=== PATIENT | female | born 1955 | race Caucasian/White ===

== ENCOUNTER → 2018-10-22 11:05 | Outpatient (CLI) | payer MEDICARE, OTHER, SELFPAY ==
[2018-10-22 13:22] LABS: Basophils # 0.1 K/mm3 (0-0.2); Basophils % 1.1 % (0.1-2.0); Eosinophils # 0.3 K/mm3 (0.0-0.4); Eosinophils % 5.6 % (0.1-12.0); Hematocrit 38.4 % (37.0-47.0); Hemoglobin 12.6 g/dL (12.2-16.2); Lymphocytes # 1.1 K/mm3 (0.7-4.5); Lymphocytes % 23.6 % (10-50); Mean Corpuscular HGB Conc 32.8 g/dL (31.8-35.4); Mean Corpuscular Hemoglobin 29.8 pg (27.0-31.2); Mean Corpuscular Volume 90.9 fl (81-99); Mean Platelet Volume 8.7 fl (7.4-10.4); Monocytes # 0.3 K/mm3 (0.1-1.0); Monocytes % 7.1 % (1.7-9.3); Neutrophils # 2.9 K/mm3 (1.8-7.8); Neutrophils % 62.7 % (37.0-80.0); Platelet Count 280 K/mm3 (142-424); Red Blood Count 4.22 M/mm3 (4.20-5.40); Red Cell Distribution Width 12.9 % (11.5-17.5); White Blood Count 4.6 K/mm3 (4.8-10.8)
[2018-10-22 13:50] LABS: Alanine Aminotransferase 75 U/L (12-78); Albumin Level 3.5 gm/dL (3.4-5.0); Alkaline Phosphatase 53 U/L (46-116); Anion Gap 17.6 mEq/L (5-15); Aspartate Amino Transferase 69 U/L (15-37); Bilirubin,Total 0.7 mg/dL (0.2-1.0); Blood Urea Nitrogen 35 mg/dL (7-18); Calcium 9.3 mg/dL (8.5-10.1); Carbon Dioxide 24 mmol/L (21.0-32.0); Chloride 101 mmol/L (98-107); Chol/HDL Ratio 2.8 (1-3.5); Cholesterol 183 mg/dL (140-200); Creatinine,Serum 1.95 mg/dL (0.55-1.02); Estimated Glomerular Filt Rate 26 ml/min (>60); GFR (African American) 31 ML/MIN (>60); Globulin 3.6 gm/dl (1.3-3.2); Glucose 101 mg/dL (74-106); HDL Cholesterol 66 mg/dL (29-89); LDL Cholesterol 89 mg/dL (0-130); Potassium 4.6 mmoL/L (3.5-5.1); Sodium 138 mmol/L (136-145); Total Protein,Serum 7.1 gm/dL (6.4-8.2); Triglycerides 142 mg/dL (30-200); VLDL Cholesterol 28 mg/dL (0-40)
== END ==
PROVIDERS: PCP Nurse Practitioner Family; Visit Provider Nurse Practitioner Family
DX: Z00.00 Encounter for general adult medical examination without abnormal findings (principal); I10 Essential (primary) hypertension; D72.819 Decreased white blood cell count, unspecified; R74.8 Abnormal levels of other serum enzymes; E78.5 Hyperlipidemia, unspecified
CPT/HCPCS: 36415; 80053; 80061; 85025

== ENCOUNTER → 2018-11-10 10:55 | Outpatient (CLI) | payer MEDICARE, OTHER, SELFPAY ==
[2018-11-10 10:58] LABS: Microscopic, Urine URINE MICROSCOPIC (MICROSCOPIC)
[2018-11-10 13:57] LABS: Appearance,Urine SL CLOUDY (Clear); Bilirubin,Urine Negative (Negative); Blood, Urine Negative (Negative); Color,Urine YELLOW (Yellow); Glucose,Urine (UA) Negative (Negative); Ketones,Urine Negative (Negative); Leukocyte Esterase,Urine 2+ (Negative); Nitrate,Urine POSITIVE (Negative); Protein,Urine Negative (Negative); Specific Gravity, Urine <= 1.005 (1.005-1.030); Urobilinogen,Urine 0.2 EU/dl (0.2)
[2018-11-10 14:20] LABS: Bacteria,Urine 1+ /lpf
[2018-11-10 15:12] LABS: Anion Gap 17.2 mEq/L (5-15); Blood Urea Nitrogen 20 mg/dL (7-18); Calcium 8.9 mg/dL (8.5-10.1); Carbon Dioxide 25 mmol/L (21.0-32.0); Chloride 100 mmol/L (98-107); Creatinine,Serum 1.34 mg/dL (0.55-1.02); Estimated Glomerular Filt Rate 40 ml/min (>60); GFR (African American) 48 ML/MIN (>60); Glucose 108 mg/dL (74-106); Potassium 4.2 mmoL/L (3.5-5.1); Sodium 138 mmol/L (136-145)
== END ==
PROVIDERS: PCP Nurse Practitioner Family; Visit Provider Nurse Practitioner Family
DX: R79.89 Other specified abnormal findings of blood chemistry (principal); R82.90 Unspecified abnormal findings in urine
CPT/HCPCS: 36415; 80048; 81001; 87086; 87088; 87186

== ENCOUNTER 2018-12-23 20:00 | Observation (INO) ==
--- NOTE | 2018-12-23 20:21 | Emergency Department Note ---
ED Disposition Clinical Impression: Obesity (BMI 30.0-34.9), Renal insufficiency Humerus fracture Qualifiers: Encounter type: initial encounter Humerus Location: shaft Fracture type: closed Fracture morphology: greenstick Laterality: right Qualified Code(s): S42.311A - Greenstick fracture of shaft of humerus, right arm, initial encounter for closed fracture Fall Qualifiers: Encounter type: initial encounter Qualified Code(s): W19.XXXA - Unspecified fall, initial encounter Anemia Qualifiers: Anemia type: unspecified type Qualified Code(s): D64.9 - Anemia, unspecified Disposition: Admitted as Observation Condition on Discharge: Fair Referrals: Ron Shen MD [Primary Care Provider] - - Critical Care Critical Care Time: No Attestation: On , the high probability of a clinically significant, sudden or life threatening deterioration of the following system(s) required my full and direct attention, intervention and personal management. The time I documented below is in addition to time spent performing reported procedures but includes the following listed in this critical care notation. Medical Decision Making - Medical Records Medical records reviewed: Yes: I reviewed the patient's medical records. - Keron Inquiry Pt receiving controlled substance: No Vital Signs: 12/23/18 20:00 Temperature 98.1 F Temperature Source Oral Pulse Rate [Right Radial] 79 Respiratory Rate 18 Blood Pressure [Right Arm] 136/59 L Blood Pressure Mean [Right Arm] 84 02 Sat by Pulse Oximetry 99 - Lab Data Lab results reviewed: Yes: I reviewed the patient's lab results. Lab Results 12/23/18 20:20: WBC 5.9, RBC 3.40 L, Hgb 10.4 L, Hct 31.9 L, MCV 94.0, MCH 30.7, MCHC 32.6, RDW 13.9, Plt Count 248, MPV 9.9, Neut % (Auto) 68.2, Lymph % (Auto) 19.5, Nelson % (Auto) 8.2, Eos % (Auto) 3.5, Baso % (Auto) 0.7, Neut # (Auto) 4.0, Lymph # (Auto) 1.2, Nelson # (Auto) 0.5, Eos # (Auto) 0.2, Baso # (Auto) 0.0 12/23/18 20:20: Sodium 133 L, Potassium 4.4, Chloride 98, Carbon Dioxide 25, Anion Gap 14.4, BUN 31 H, Creatinine 1.47 H, Estimated Creat Clear 41, Estimated GFR 36 L, Est GFR ( Amer) 43 L, Glucose 101, Calcium 9.2, Total Bilirubin 1.1 H, AST 83 H, ALT 55, Alkaline Phosphatase 83, Total Protein 7.1, Albumin 3.0 L, Globulin 4.1 H, Albumin/Globulin Ratio 0.7 L Result diagrams: 12/23/18 20:20 12/23/18 20:20 Orders (Tests/Meds): ED MEDICATIONS Generic Name Dose Route Start Last Admin Trade Name Freq PRN Reason Stop Dose Admin Sodium Chloride 1,000 mls @ 999 mls/hr 12/23/18 20:30 12/23/18 20:37 Sod Chlor 0.9% 1000ml Bag IV 12/23/18 21:30 999 mls/hr .Q1H1M CONSUELO Administration Sodium Chloride 10 ml 12/23/18 20:09 Saline Flush 10ml Syringe IV 01/22/19 20:08 NEEDED PRN Maintain IV Site Discontinued Medications Generic Name Dose Route Start Last Admin Trade Name Freq PRN Reason Stop Dose Admin Morphine Sulfate 4 mg 12/23/18 20:09 12/23/18 20:37 Morphine 4mg/Ml Syringe IV 12/23/18 20:10 4 mg ONCE ONE Administration Ondansetron HCl 4 mg 12/23/18 20:09 12/23/18 20:37 Zofran 4mg/2ml Vial IV 12/23/18 20:10 4 mg ONCE ONE Administration ORDERS Category Date Time Status CT angio humerus RT Stat Cat Scan 12/23/18 20:[address] cervical spine wo con Stat Cat Scan 12/23/18 20:[address] facial bones wo con Stat Cat Scan 12/23/18 20:[address] head/brain wo con Stat Cat Scan 12/23/18 20:09 Taken XR chest AP Stat Exams 12/23/18 20:09 Taken XR forearm RT 2V Stat Exams 12/23/18 20:09 Taken XR hand RT min 3V Stat Exams 12/23/18 20:09 Taken XR humerus RT Stat Exams 12/23/18 20:14 Taken XR pelvis 1-2V Stat Exams 12/23/18 20:09 Taken CPK [Creatine Kinase] Stat Lab 12/23/18 20:20 Received UA [Urinalysis and Microscopic] Stat Lab 12/23/18 21:37 Ordered - Radiology Data #1 Image(s): Chest, Shoulder, Humerus, Forearm, Pelvis Image Reviewed: Yes I reviewed the patient's radiology image Preliminary Findings: Abnormal (fx seen) - CT Data CT Scan: Head, C-Spine, Sinus Time Received: 21:[address] Reviewed: Yes: I have viewed the radiologist's interpretation Preliminary Findings: No Fracture Seen - Physician Consults Physician Consulted: antonio Reason -: Admission Additional Consult: quincy Reason -: Pt condition Fall HPI - General Chief Complaint: Fall Stated Complaint: fall Time Seen by Provider: 12/23/18 20:05 Mode of Arrival: EMS Source of Information: Patient, EMS, Medical Record Limitations: Physical Limitations Description of Symptoms (Recalled from ER Triage Doc. by RN): pt states she fell on thursday after tripping on a welcome mat. pt states that she fell into the edge of a table and then hit a barstool. - History of Present Illness HPI Narrative: trip fall on thursday with rt upper ext and facial injury - no loc and no chest pain Onset (ago): day(s) Fall from: standing Fall witnessed: no Place fall occurred: home Loss of consciousness: none Prolonged down time: no Symptoms prior to fall: none Context: tripped/slipped Location of injury: head, face Location of injury - extremities: Right: arm Severity: moderate Associated symptoms (after fall): denies - Related Data Home Medications Medication Instructions Recorded Confirmed ALPRAZolam [Xanax 0.5mg tab] 0.5 mg PO TID 12/23/18 12/23/18 Amlodipine Besylate [Norvasc 2.5mg 2.5 mg PO DAILY 12/23/18 12/23/18 Tab] Atorvastatin Calcium [Lipitor 40mg 40 mg PO DAILY 12/23/18 12/23/18 Tablet] Carvedilol [Carvedilol 12.5mg Tab] 12.5 mg PO BID 12/23/18 12/23/18 Allergies Allergy/AdvReac Type Severity Reaction Status Date / Time No Known Allergies Allergy Unknown Uncoded 10/13/17 14:52 [facility] History - Hepatitis A Screen Drug use history?: No High risk sexual behaviors?: No History of sexually transmitted infection?: No Currently employed?: No Childcare worker?: No Do you have indoor plumbing?: Yes Do you have electricity?: Yes Attestation statement:: This patient has been screened for Hepatitis A risk factors. I have reviewed the patient's past medical history: No Medical History: Denies:: Cancer, Diabetes Mellitus Type 1, Diabetes Mellitus Type 2, MRSA Amputation: No - Social History Smoking Status: Never smoker Alcohol Intake: current Alcohol Intake Frequency:: a few times a month Occupational Status: retired Housing: house - Psychiatric History Expresses thoughts of harming self/others: None Suicide Plan Description: No Plan ROS Obtained: Yes All systems reviewed & no additional complaints - Constitutional Constitutional: Denies fever(s) - Eyes Eyes: Denies change in vision - ENT Ears, Nose, Mouth, and Throat: Denies sore throat - Cardiovascular Cardiovascular: Denies chest pain at rest - Respiratory Respiratory: No cough - Gastrointestinal Gastrointestingal: Denies: diarrhea, vomiting - Genitourinary Female Genitourinary: Denies hematuria - Musculoskeletal Musculoskeletal: Reports as per HPI, Reports joint pain, Reports joint swelling, Reports limited range of motion, Reports neck pain - Integumentary/Breasts Skin/Breast: Denies rash - Neurologic Neurologic: Denies seizure-like activity Physical Exam - General General appearance: in no apparent distress, obese - Head Head exam: normocephalic - Eye Eye exam: Present: PERRL, EOMI - ENT ENT exam: Present: mucous membranes dry, other (positive facial bruising ) - Neck Neck exam: Present: trachea midline. Absent: full ROM - Chest Chest inspection: Present: normal inspection - Respiratory Respiratory exam: Present: other (dec bs bilat ) - Cardiovascular Cardiovascular exam: Present: regular rate, systolic murmur - Abdominal Exam Abdominal exam: Present: soft - Extremities Exam Extremities exam: Absent: calf tenderness - Expanded Upper Extremity Exam Right Arm exam: Present: tenderness, swelling, ecchymosis, deformity Neuromotor exam: Normal: wrist extension Neurosensory exam: Normal: radial nerve - Expanded Lower Extremity Exam Right Hip/Pelvis exam: Present: pelvis stable - Neurological Exam Neurological exam: Present: alert, oriented X3, CN II-XII intact - Psychiatric Psychiatric exam: Present: normal affect - Skin Skin exam: Absent: rash
[2018-12-23 20:26] LABS: Basophils % 0.7 % (0.1-2.0); Eosinophils # 0.2 K/mm3 (0.0-0.4); Eosinophils % 3.5 % (0.1-12.0); Hematocrit 31.9 % (37.0-47.0); Hemoglobin 10.4 g/dL (12.2-16.2); Lymphocytes # 1.2 K/mm3 (0.7-4.5); Lymphocytes % 19.5 % (10-50); Mean Corpuscular HGB Conc 32.6 g/dL (31.8-35.4); Mean Corpuscular Hemoglobin 30.7 pg (27.0-31.2); Mean Platelet Volume 9.9 fl (7.4-10.4); Monocytes # 0.5 K/mm3 (0.1-1.0); Monocytes % 8.2 % (1.7-9.3); Neutrophils % 68.2 % (37.0-80.0); Platelet Count 248 K/mm3 (142-424); Red Cell Distribution Width 13.9 % (11.5-17.5); White Blood Count 5.9 K/mm3 (4.8-10.8)
[2018-12-23 20:40] LABS: Albumin/Globulin Ratio 0.7 (1.1-1.8); Anion Gap 14.4 mEq/L (5-15); Bilirubin,Total 1.1 mg/dL (0.2-1.0); Calcium 9.2 mg/dL (8.5-10.1); Globulin 4.1 gm/dl (1.3-3.2); Potassium 4.4 mmoL/L (3.5-5.1); Total Protein,Serum 7.1 gm/dL (6.4-8.2)
[2018-12-24 04:54] LABS: Calcium 8.9 mg/dL (8.5-10.1)
[2018-12-24 05:00] LABS: Basophils % 0.7 % (0.1-2.0); Eosinophils # 0.3 K/mm3 (0.0-0.4); Eosinophils % 4.5 % (0.1-12.0); Hematocrit 29.4 % (37.0-47.0); Hemoglobin 9.7 g/dL (12.2-16.2); Lymphocytes # 1.4 K/mm3 (0.7-4.5); Lymphocytes % 24.8 % (10-50); Mean Corpuscular HGB Conc 32.9 g/dL (31.8-35.4); Mean Corpuscular Hemoglobin 31.2 pg (27.0-31.2); Mean Corpuscular Volume 94.8 fl (81-99); Mean Platelet Volume 9.2 fl (7.4-10.4); Monocytes # 0.4 K/mm3 (0.1-1.0); Monocytes % 7.7 % (1.7-9.3); Neutrophils # 3.5 K/mm3 (1.8-7.8); Neutrophils % 62.3 % (37.0-80.0); Platelet Count 218 K/mm3 (142-424); Red Blood Count 3.11 M/mm3 (4.20-5.40); Red Cell Distribution Width 13.8 % (11.5-17.5); White Blood Count 5.7 K/mm3 (4.8-10.8)
--- NOTE | 2018-12-24 07:51 | Pharmacy Consult Notes ---
[facility] Pharmacy VTE Monitoring - Patient Demographics Admission date: 12/23/18 Report Date: 12/24/18 Time: 07:51 Allergies/Adverse Reactions: Patient Allergies No Known Allergies Allergy (Unknown, Uncoded 10/13/17 14:52) Height: 1.47 m Weight: 73.227 kg Patient Problems: Current Active Problems Humerus fracture (Acute) Obesity (BMI 30.0-34.9) (Acute) Fall (Acute) Renal insufficiency (Acute) Anemia (Acute) - VTE Risk Labs: VTE Related Lab Results Hgb 9.7 g/dL (12.2-16.2) L 12/24/18 04:30 Hct 29.4 % (37.0-47.0) L 12/24/18 04:30 Plt Count 218 K/mm3 (142-424) 12/24/18 04:30 BUN 27 mg/dL (7-18) H 12/24/18 04:30 Creatinine 1.23 mg/dL (0.55-1.02) H 12/24/18 04:30 Estimated Creat Clear 53 mL/min (50-200) 12/24/18 04:30 Was VTE Risk Assessment Performed: Yes VTE Score: 3 VTE Risk Level: Low Risk Clinical Trial Participant: No - Prophylaxis VTE Prophylaxis Ordered?: Yes Types of VTE Prophylaxis: TEDS Knee High Location of Applied Device: Refused
--- NOTE | 2018-12-24 08:19 | History & Physical Report ---
*Admission Date: 12/23/18 *Chief complaint: humerus fracture *History of present illness: Ms. Melo is a 63-year-old female who fell a week ago and has had arm pain since. Presented to the ER where she was noted to have displaced, oblique, midshaft humeral fracture. Was admitted as she requires surgical fixation. Additionally patient has renal insufficiency, per review of labs this appears to be chronic and she is roughly at her baseline creatinine. Lastly noted to have elevated CK however given the soft tissue trauma with her arm fracture, suspect it is related to this versus bia rhabdomyolysis. Orthopedic surgery consulted from the ER, plan for surgery today [facility] History Medical History: Reports:: Hyperlipidemia, Hypertension Denies:: Cancer, Diabetes Mellitus Type 1, Diabetes Mellitus Type 2, MRSA *Have you ever received a pneumonia vaccine?: Yes *Have you received a flu vaccine this season?: Yes Other Surgeries: Yes: Appendectomy, Cholecystectomy, Diagnostic Lap, Other (Right Ankle Surgery) Amputation: No - *Social History Educational Level: Completed College Smoking Status: Never smoker Alcohol Intake: never Alcohol Intake Frequency:: a few times a month *Occupational Status:: retired Housing: house Household Members: none *Travel in the last 8 weeks: None - Psychiatric History Expresses thoughts of harming self/others: None Suicide Plan Description: No Plan Family Hx:: Diabetes, Heart Attack, Hyperlipidemia, Hypertension Review of Systems - *Neurologic Denies seizure-like activity Meds Home Medications Medication Instructions Recorded Confirmed Type ALPRAZolam [Xanax 0.5mg tab] 0.5 mg PO TID 12/23/18 12/23/18 History Amlodipine Besylate [Norvasc 2.5mg 2.5 mg PO DAILY 12/23/18 12/23/18 History Tab] Atorvastatin Calcium [Atorvastatin 20 mg PO HS 12/24/18 12/24/18 History 20mg Tab] Carvedilol [Carvedilol 25mg Tab] 25 mg PO BID 12/24/18 12/24/18 History Losartan Potassium [Cozaar] 100 mg PO DAILY 12/24/18 12/24/18 History Allergies Allergy/AdvReac Type Severity Reaction Status Date / Time No Known Allergies Allergy Unknown Uncoded 10/13/17 14:52 Exam Vital signs and Labs for Last 24 Hours: Temp Pulse Resp BP Pulse Ox 99.0 F 77 15 115/67 96 03/01/19 04:00 12/24/18 04:00 12/24/18 04:00 12/24/18 04:00 12/24/18 04:00 Laboratory Results - last 24 hr 12/23/18 20:20: WBC 5.9, RBC 3.40 L, Hgb 10.4 L, Hct 31.9 L, MCV 94.0, MCH 30.7, MCHC 32.6, RDW 13.9, Plt Count 248, MPV 9.9, Neut % (Auto) 68.2, Lymph % (Auto) 19.5, [place] % (Auto) 8.2, Eos % (Auto) 3.5, Baso % (Auto) 0.7, Neut # (Auto) 4. 0, Lymph # (Auto) 1.2, [place] # (Auto) 0.5, Eos # (Auto) 0.2, Baso # (Auto) 0.0 12/23/18 20:20: Sodium 133 L, Potassium 4.4, Chloride 98, Carbon Dioxide 25, Anion Gap 14.4, BUN 31 H, Creatinine 1.47 H, Estimated Creat Clear 41, Estimated GFR 36 L, Est GFR ( Amer) 43 L, Glucose 101, Calcium 9.2, Total Bilirubin 1.1 H, AST 83 H, ALT 55, Alkaline Phosphatase 83, Total Protein 7.1, Albumin 3.0 L, Globulin 4.1 H, Albumin/Globulin Ratio 0.7 L 12/23/18 20:20: Total Creatine Kinase 1372 H* 12/24/18 00:50: Troponin I < 0.02 12/24/18 04:30: Troponin I < 0.02 12/24/18 04:30: WBC 5.7, RBC 3.11 L, Hgb 9.7 L, Hct 29.4 L, MCV 94.8, MCH 31.2, MCHC 32.9, RDW 13.8, Plt Count 218, MPV 9.2, Neut % (Auto) 62.3, Lymph % (Auto) 24.8, [place] % (Auto) 7.7, Eos % (Auto) 4.5, Baso % (Auto) 0.7, Neut # (Auto) 3.5, Lymph # (Auto) 1.4, [place] # (Auto) 0.4, Eos # (Auto) 0.3, Baso # (Auto) 0.0 12/24/18 04:30: Sodium 136, Potassium 4.0, Chloride 101, Carbon Dioxide 24, Anion Gap 15.0, BUN 27 H, Creatinine 1.23 H, Estimated Creat Clear 53, Estimated GFR 44 L, Est GFR ( Amer) 53 L D, Glucose 83, Calcium 8.9 I & O for Last 24 hours: Intake & Output 12/21/18 12/22/18 12/23/18 12/24/18 23:59 23:59 23:59 23:59 Intake Total 1000 / 1000 559 / 559 Output Total 300 / 300 Balance 1000 / 999 259 / 259 Weight 73.227 kg 73.227 kg
--- NOTE | 2018-12-24 11:17 | Consult Report ---
*Admission Date: 12/23/18 *Chief complaint: Injury right arm *History of present illness: Ms. Melo is a 63-year-old [id number] female with remote history of alcohol abuse, current history of obesity, hypertension, hyperlipidemia, chronic kidney disease, and anxiety necessitating daily Xanax. She presented to the ER due to persistent pain in her right arm. She reports having fallen a week ago and has had arm pain since. She says she fell down at home after tripping over the rug going into her house. She presented to the ER last night where she was noted to have a closed, displaced, spiral midshaft fracture right humerus. Patient was admitted for observation due to concern for mild rhabdomyolysis, kidney insufficiency, and pain control. Orthopedic surgery was consulted for managing the humeral fracture. Patient denies any head trauma, confusion, neurologic deficits, chest pain, shortness of breath. No history of any distal tingling or numbness. She lives by herself and friends and neighbors have been helping her since she fell. Review of Systems - Review of Systems Review of systems:: pertinent systems reviewed and negative unless documented below - Constitutional Denies anorexia, Denies fever(s) - Eyes Denies blind spots, Denies change in vision - ENT Denies abnormal hearing, Denies difficulty swallowing - *Cardiovascular Denies chest pain, Denies shortness of breath - *Respiratory Denies cough, Denies shortness of breath - *Gastrointestinal Denies abdominal pain, Denies change in bowel habits - *Musculoskeletal Reports joint pain, Reports deformity - *Neurologic Denies abnormal movements, Denies abnormal speech, Denies seizure-like activity [facility] History I have reviewed the patient's past medical history: Yes Medical History: Reports:: Hyperlipidemia, Hypertension Denies:: Cancer, Diabetes Mellitus Type 1, Diabetes Mellitus Type 2, MRSA *Have you ever received a pneumonia vaccine?: Yes *Have you received a flu vaccine this season?: Yes Other Surgeries: Yes: Appendectomy, Cholecystectomy, Diagnostic Lap, Other (Right Ankle Surgery) Amputation: No - *Social History Educational Level: Completed College Smoking Status: Never smoker Alcohol Intake: never Alcohol Intake Frequency:: a few times a month *Occupational Status:: retired Housing: house Household Members: none *Travel in the last 8 weeks: None - Psychiatric History Expresses thoughts of harming self/others: None Suicide Plan Description: No Plan Family Hx:: Diabetes, Heart Attack, Hyperlipidemia, Hypertension Meds Home Medications Medication Instructions Recorded Confirmed Type ALPRAZolam [Xanax 0.5mg tab] 0.5 mg PO TID 12/23/18 12/23/18 History Amlodipine Besylate [Norvasc 2.5mg 2.5 mg PO DAILY 12/23/18 12/23/18 History Tab] Atorvastatin Calcium [Atorvastatin 20 mg PO HS 12/24/18 12/24/18 History 20mg Tab] Calcium Carbonate/Vitamin D3 1 each PO DAILY 30 Days #30 tablet 12/24/18 Rx [Calcium 1,000 + D3 Caplet] Carvedilol [Carvedilol 25mg Tab] 25 mg PO BID 12/24/18 12/24/18 History Losartan Potassium [Cozaar] 100 mg PO DAILY 12/24/18 12/24/18 History Allergies Allergy/AdvReac Type Severity Reaction Status Date / Time No Known Allergies Allergy Unknown Uncoded 10/13/17 14:52 Exam Vital signs and Labs for Last 24 Hours: Temp Pulse Resp BP Pulse Ox 97.8 F 82 18 125/81 99 12/24/18 08:00 12/24/18 08:00 12/24/18 08:00 12/24/18 08:00 12/24/18 08:00 Laboratory Results - last 24 hr 12/23/18 20:20: WBC 5.9, RBC 3.40 L, Hgb 10.4 L, Hct 31.9 L, MCV 94.0, MCH 30.7, MCHC 32.6, RDW 13.9, Plt Count 248, MPV 9.9, Neut % (Auto) 68.2, Lymph % (Auto) 19.5, Stafford % (Auto) 8.2, Eos % (Auto) 3.5, Baso % (Auto) 0.7, Neut # (Auto) 4.0, Lymph # (Auto) 1.2, Stafford # (Auto) 0.5, Eos # (Auto) 0.2, Baso # (Auto) 0.0 12/23/18 20:20: Sodium 133 L, Potassium 4.4, Chloride 98, Carbon Dioxide 25, Anion Gap 14.4, BUN 31 H, Creatinine 1.47 H, Estimated Creat Clear 41, Estimated GFR 36 L, Est GFR ( Amer) 43 L, Glucose 101, Calcium 9.2, Total Bilirubin 1.1 H, AST 83 H, ALT 55, Alkaline Phosphatase 83, Total Protein 7.1, Albumin 3.0 L, Globulin 4.1 H, Albumin/Globulin Ratio 0.7 L 12/23/18 20:20: Total Creatine Kinase 1372 H* 12/24/18 00:50: Troponin I < 0.02 12/24/18 04:30: Troponin I < 0.02 12/24/18 04:30: WBC 5.7, RBC 3.11 L, Hgb 9.7 L, Hct 29.4 L, MCV 94.8, MCH 31.2, MCHC 32.9, RDW 13.8, Plt Count 218, MPV 9.2, Neut % (Auto) 62.3, Lymph % (Auto) 24.8, [place] % (Auto) 7.7, Eos % (Auto) 4.5, Baso % (Auto) 0.7, Neut # (Auto) 3.5, Lymph # (Auto) 1.4, [place] # (Auto) 0.4, Eos # (Auto) 0.3, Baso # (Auto) 0.0 12/24/18 04:30: Sodium 136, Potassium 4.0, Chloride 101, Carbon Dioxide 24, Anion Gap 15.0, BUN 27 H, Creatinine 1.23 H, Estimated Creat Clear 53, Estimated GFR 44 L, Est GFR ( Amer) 53 L D, Glucose 83, Calcium 8.9 I & O for Last 24 hours: Intake & Output 12/21/18 12/22/18 12/23/18 12/24/18 11:59 11:59 11:59 11:59 Intake Total 1559 / 1559 Output Total 300 / 300 Balance 1259 / 1259 Weight 161 lb 7 oz - Constitutional no acute distress, obese, cooperative - *Routine HEENT Exam Head: Present: normocephalic Eye: Present: EOMI ENT: Present: mucous membranes moist Comments: Fading ecchymosis around the right eye; no fractures noted on imaging - *Routine Neck Exam Present: supple, full ROM, trachea midline. Absent: lymphadenopathy - *Routine Respiratory Exam Present: CTA bilaterally. Absent: respiratory distress - *Routine Cardiovascular Exam Present: RRR, Normal S1, Normal S2 - *Routine Abdominal Exam Present: soft, normoactive bowel sounds. Absent: organomegaly - *Routine Extremities Exam Comments: Right upper extremity: skin is in good condition, no ulcerations or lacerations evident; there is extensive swelling and ecchymosis over the right shoulder, upper arm and around the elbow. Palpation/Inspection: Diffuse swelling and tenderness over the upper arm. Nontender over the shoulder and elbow joints. Skin is not tented or threatened. Range of motion: Movements of the right shoulder and right elbow not tested because of known fracture and pain. Vascular: Radial and ulnar pulses intact; cap refill almost instantaneous. Neurovascular status: grossly intact; axillary nerve is intact and the deltoid is actively marian. Radial nerve is intact and she has good range of active extension of wrist and fingers. Sensation is intact to light touch throughout. Normal sensation and motor power over R/M/U nerve distribution. Miscellaneous: Examination of the wrist and hand are unremarkable. Diagnostic Imaging: X-rays performed at [facility] reviewed along with the radiologist's report- the x-rays show a displaced, spiral fracture midshaft right humerus. Results - Labs Result Diagrams: 12/24/18 04:30 12/24/18 04:30 Labs: Abnormal lab results 12/23/18 12/23/18 12/23/18 Range/Units 20:20 20:20 20:20 RBC 3.40 L (4.20-5.40) M/mm3 Hgb 10.4 L (12.2-16.2) g/dL Hct 31.9 L (37.0-47.0) % Sodium 133 L (136-145) mmol/L BUN 31 H (7-18) mg/dL Creatinine 1.47 H (0.55-1.02) mg/dL Estimated GFR 36 L (>60) ml/min Est GFR ( Amer) 43 L (>60) ML/MIN Total Bilirubin 1.1 H (0.2-1.0) mg/dL AST 83 H (15-37) U/L Total Creatine Kinase 1372 H* (26-192) U/L Albumin 3.0 L (3.4-5.0) gm/dL Globulin 4.1 H (1.3-3.2) gm/dl Albumin/Globulin Ratio 0.7 L (1.1-1.8) 12/24/18 12/24/18 Range/Units 04:30 04:30 RBC 3.11 L (4.20-5.40) M/mm3 Hgb 9.7 L (12.2-16.2) g/dL Hct 29.4 L (37.0-47.0) % Sodium (136-145) mmol/L BUN 27 H (7-18) mg/dL Creatinine 1.23 H (0.55-1.02) mg/dL Estimated GFR 44 L (>60) ml/min Est GFR ( Amer) 53 L D (>60) ML/MIN Total Bilirubin (0.2-1.0) mg/dL AST (15-37) U/L Total Creatine Kinase (26-192) U/L Albumin (3.4-5.0) gm/dL Globulin (1.3-3.2) gm/dl Albumin/Globulin Ratio (1.1-1.8) H & H 12/23/18 12/24/18 Range/Units 20:20 04:30 Hgb 10.4 L 9.7 L (12.2-16.2) g/dL Hct 31.9 L 29.4 L (37.0-47.0) % All other labs normal. Assessment and Plan (1) Fall Current visit: Yes Status: Acute Qualifiers: Encounter type: initial encounter Qualified Code(s): W19.XXXA - Unspecified fall, initial encounter Category: Medical Code(s): W19.XXXA - Unspecified fall, initial encounter (2) Humerus fracture Current visit: Yes Status: Acute Qualifiers: Encounter type: initial encounter Humerus Location: shaft Fracture type: closed Fracture morphology: spiral Fracture alignment: displaced Laterality: right Qualified Code(s): S42.341A - Displaced spiral fracture of shaft of humerus, right arm, initial encounter for closed fracture Category: Medical Code(s): S42.309A - Unspecified fracture of shaft of humerus, unspecified arm, initial encounter for closed fracture - Assessment and plan all Dx Assessment and Plan for all problems:: I have reviewed the clinical and x-ray findings with the patient. I have discussed the diagnosis, natural history and management options in detail in cluding both nonsurgical and surgical. Given the fracture pattern/alignment, medical comorbidities, I have recommended conservative management with a hanging cast application. Patient wished to proceed with this. A well-padded and well fitting hanging cast was applied to the right arm. Appropriate cast care instructions were given. I have advised rest, icing, activity modification, intermittent shoulder, wrist and finger movements, simple pain medication as needed and to sleep in a reclined position. I have discussed about likely need for surgical intervention if the alignment is not acceptable during follow-up or if she develops any complications. All her questions were answered and she verbalized a good understanding. From an orthopedic standpoint, patient can be discharged home as appropriate. I would like to see her for follow-up in my office in one week with check x-ray right humerus.
--- NOTE | 2018-12-24 12:20 | H&P/Discharge Summary ---
General - General Admission date:: 12/23/18 Discharge date: 12/24/18 *Admission Date: 12/23/18 *Chief complaint: right humeral fracture *History of present illness: Ms. Melo is a 63-year-old female with remote history of alcohol abuse, current history of obesity, hypertension, hyperlipidemia, chronic kidney disease, and anxiety necessitating daily Xanax. She presented to the ER due to persistent pain in her right arm. She reports having fallen a week ago and has had arm pain since. Presented to the ER where she was noted to have displaced, oblique, midshaft humeral fracture. Was admitted for assessment of surgical fixation versus hanging cast as well as due to concern for mild rhabdomyolysis, kidney insufficiency, and pain control. Orthopedic surgery consulted from the ER, plan for assessment this morning for surgery versus casting. Denies head trauma, confusion, neurologic deficits, chest pain, shortness of breath. On further questioning states she tripped over the rug going into her house. D enies any trauma sustained from anybody else. [facility] History I have reviewed the patient's past medical history: Yes Medical History: Reports:: Hyperlipidemia, Hypertension Denies:: Cancer, Diabetes Mellitus Type 1, Diabetes Mellitus Type 2, MRSA *Have you ever received a pneumonia vaccine?: Yes *Have you received a flu vaccine this season?: Yes Other Surgeries: Yes: Appendectomy, Cholecystectomy, Diagnostic Lap, Other (Right Ankle Surgery) Amputation: No - *Social History Educational Level: Completed College Smoking Status: Never smoker Alcohol Intake: never Alcohol Intake Frequency:: a few times a month *Occupational Status:: retired Housing: house Household Members: none *Travel in the last 8 weeks: None - Psychiatric History Expresses thoughts of harming self/others: None Suicide Plan Description: No Plan Family Hx:: Diabetes, Heart Attack, Hyperlipidemia, Hypertension Review of Systems - Review of Systems Review of systems:: pertinent systems reviewed and negative unless documented below - *Neurologic Denies seizure-like activity Exam Vital signs and Labs for Last 24 Hours: Temp Pulse Resp BP Pulse Ox 97.8 F 82 18 125/81 99 12/24/18 08:00 12/24/18 08:00 12/24/18 08:00 12/24/18 08:00 12/24/18 08:00 Laboratory Results - last 24 hr 12/23/18 20:20: WBC 5.9, RBC 3.40 L, Hgb 10.4 L, Hct 31.9 L, MCV 94.0, MCH 30.7, MCHC 32.6, RDW 13.9, Plt Count 248, MPV 9.9, Neut % (Auto) 68.2, Lymph % (Auto) 19.5, Cannon % (Auto) 8.2, Eos % (Auto) 3.5, Baso % (Auto) 0.7, Neut # (Auto) 4.0, Lymph # (Auto) 1.2, Cannon # (Auto) 0.5, Eos # (Auto) 0.2, Baso # (Auto) 0.0 12/23/18 20:20: Sodium 133 L, Potassium 4.4, Chloride 98, Carbon Dioxide 25, Anion Gap 14.4, BUN 31 H, Creatinine 1.47 H, Estimated Creat Clear 41, Estimated GFR 36 L, Est GFR ( Amer) 43 L, Glucose 101, Calcium 9.2, Total Bilirubin 1.1 H, AST 83 H, ALT 55, Alkaline Phosphatase 83, Total Protein 7.1, Albumin 3.0 L, Globulin 4.1 H, Albumin/Globulin Ratio 0.7 L 12/23/18 20:20: Total Creatine Kinase 1372 H* 12/24/18 00:50: Troponin I < 0.02 12/24/18 04:30: Troponin I < 0.02 12/24/18 04:30: WBC 5.7, RBC 3.11 L, Hgb 9.7 L, Hct 29.4 L, MCV 94.8, MCH 31.2, MCHC 32.9, RDW 13.8, Plt Count 218, MPV 9.2, Neut % (Auto) 62.3, Lymph % (Auto) 24.8, Cannon % (Auto) 7.7, Eos % (Auto) 4.5, Baso % (Auto) 0.7, Neut # (Auto) 3.5, Lymph # (Auto) 1.4, Cannon # (Auto) 0.4, Eos # (Auto) 0.3, Baso # (Auto) 0.0 12/24/18 04:30: Sodium 136, Potassium 4.0, Chloride 101, Carbon Dioxide 24, Anion Gap 15.0, BUN 27 H, Creatinine 1.23 H, Estimated Creat Clear 53, Estimated GFR 44 L, Est GFR ( Amer) 53 L D, Glucose 83, Calcium 8.9 I & O for Last 24 hours: Intake & Output 12/21/18 12/22/18 12/23/18 12/24/18 23:59 23:59 23:59 23:59 Intake Total 1000 / 1000 559 / 559 Output Total 300 / 300 Balance 1000 / 1000 259 / 259 Weight 73.227 kg 73.227 kg - *Routine HEENT Exam Head: Present: normocephalic Eye: Present: EOMI, PERRL ENT: Present: mucous membranes moist Comments: ecchymosis around right eye, no fractures - *Routine Neck Exam Present: supple, full ROM - Routine Chest/Breast/Axilla Exam Comments: bruise on right and left anterior shoulders, no step offs or pain to palpation of chest. - *Routine Respiratory Exam Present: CTA bilaterally. Absent: rales, wheezes, crackles - *Routine Cardiovascular Exam Present: RRR, Normal S1 - *Routine Abdominal Exam Present: soft, normoactive bowel sounds. Absent: tenderness - *Routine Rectal Exam Patient deferred: visual exam - *Routine Exam Patient deferred: external exam - *Routine Extremities Exam Present: edema. Absent: cyanosis, clubbing Comments: Right upper extremity with significant bruising from shoulder down to wrist, quite edematous. Neurovascularly intact in her fingers and able to move her irving nd and wrist. No edema in lower extremities. - *Routine Skin Exam Present: intact. Absent: cyanosis, erythema - *Routine Neurological Exam Present: alert, oriented X3. Absent: altered mental status Hospital Course Hospital Course: Monitored overnight and placed in external brace. Orthopedic surgery saw her this morning and recommended no surgical fixation at this time. Did place patient in hanging cast with close approximation of fracture. Plan to follow-up as an outpatient with repeat imaging to assess for healing versus surgical need. Significant swelling at this time complicates surgical fixation at this point. Patient's pain is been well controlled with morphine during admission. Disc harged home with 5 days worth of pain meds. Encouraged to continue to stay hydrated. Has family that will stay with her and assist her at home with ADLs. Plan for follow-up in 1 week with primary care Results Labs on day of discharge: Labs from last 24 hours 12/24/18 12/24/18 12/24/18 04:30 04:30 04:30 WBC 5.7 RBC 3.11 L Hgb 9.7 L Hct 29.4 L MCV 94.8 MCH 31.2 MCHC 32.9 RDW 13.8 Plt Count 218 MPV 9.2 Neut % (Auto) 62.3 Lymph % (Auto) 24.8 Cannon % (Auto) 7.7 Eos % (Auto) 4.5 Baso % (Auto) 0.7 Neut # (Auto) 3.5 Lymph # (Auto) 1.4 Cannon # (Auto) 0.4 Eos # (Auto) 0.3 Baso # (Auto) 0.0 Sodium 136 Potassium 4.0 Chloride 101 Carbon Dioxide 24 Anion Gap 15.0 BUN 27 H Creatinine 1.23 H Estimated Creat Clear 53 Estimated GFR 44 L Est GFR ( Amer) 53 L D Glucose 83 Calcium 8.9 Total Bilirubin AST ALT Alkaline Phosphatase Total Creatine Kinase Troponin I < 0.02 Total Protein Albumin Globulin Albumin/Globulin Ratio 12/24/18 12/23/18 12/23/18 00:50 20:20 20:20 WBC RBC Hgb Hct MCV MCH MCHC RDW Plt Count MPV Neut % (Auto) Lymph % (Auto) Cannon % (Auto) Eos % (Auto) Baso % (Auto) Neut # (Auto) Lymph # (Auto) Cannon # (Auto) Eos # (Auto) Baso # (Auto) Sodium 133 L Potassium 4.4 Chloride 98 Carbon Dioxide 25 Anion Gap 14.4 BUN 31 H Creatinine 1.47 H Estimated Creat Clear 41 Estimated GFR 36 L Est GFR ( Amer) 43 L Glucose 101 Calcium 9.2 Total Bilirubin 1.1 H AST 83 H ALT 55 Alkaline Phosphatase 83 Total Creatine Kinase 1372 H* Troponin I < 0.02 Total Protein 7.1 Albumin 3.0 L Globulin 4.1 H Albumin/Globulin Ratio 0.7 L 12/23/18 20:20 WBC 5.9 RBC 3.40 L Hgb 10.4 L Hct 31.9 L MCV 94.0 MCH 30.7 MCHC 32.6 RDW 13.9 Plt Count 248 MPV 9.9 Neut % (Auto) 68.2 Lymph % (Auto) 19.5 Cannon % (Auto) 8.2 Eos % (Auto) 3.5 Baso % (Auto) 0.7 Neut # (Auto) 4.0 Lymph # (Auto) 1.2 Cannon # (Auto) 0.5 Eos # (Auto) 0.2 Baso # (Auto) 0.0 Sodium Potassium Chloride Carbon Dioxide Anion Gap BUN Creatinine Estimated Creat Clear Estimated GFR Est GFR ( Amer) Glucose Calcium Total Bilirubin AST ALT Alkaline Phosphatase Total Creatine Kinase Troponin I Total Protein Albumin Globulin Albumin/Globulin Ratio DS: Diagnosis - Discharge Diagnosis (1) Fall Status: Acute (2) Humerus fracture Status: Acute (3) Hypertension Status: Chronic (4) Obesity (BMI 30.0-34.9) Status: Chronic (5) Hyperlipidemia Status: Chronic Discharge Medications - Medications for Discharge Home Medication List at Discharge: New Calcium Carbonate/Vitamin D3 [Calcium 1,000 + D3 Caplet] 1 each PO DAILY 30 Days #30 tablet Continue Amlodipine Besylate [Norvasc 2.5mg Tab] 2.5 mg PO DAILY ALPRAZolam [Xanax 0.5mg tab] 0.5 mg PO TID Atorvastatin Calcium [Atorvastatin 20mg Tab] 20 mg PO HS Carvedilol [Carvedilol 25mg Tab] 25 mg PO BID Losartan Potassium [Cozaar] 100 mg PO DAILY Disposition Disposition: Home, Self-Care
== END 2018-12-24 16:30 | disposition home or self-care (01) ==
LOC: ER 20:00 → 2ND 20:00
PROVIDERS: ADMIT Family Medicine; ATTEND Internal Medicine Adolescent Medicine
CPT/HCPCS: 36415; 70450; 70486; 71010; 71045; 72125; 72170; 73060; 73090; 73130; 80048; 80053; 82550; 84484; 85025; 96365; 96375; 96376; 99284; G0378; J2405

== ENCOUNTER → 2019-01-03 13:11 | Outpatient (CLI) | payer MEDICARE, OTHER, SELFPAY ==
--- NOTE | 2019-01-03 13:20 | XR_ITS ---
XR shoulder RT min 2V HISTORY: Follow-up fracture, injury with pain ITS.REASON: RT HUMERUS FX ORDERING PHYSICIAN: Kalpesh Medina MD PATIENT AGE: 63 years Comparison: None FINDINGS: The glenohumeral joint has an unremarkable appearance. Displaced mid/proximal humeral fracture once again noted as described in the humerus report. IMPRESSION: Unremarkable glenohumeral joint Displaced mid to proximal shaft humeral fracture
--- NOTE | 2019-01-03 13:20 | XR_ITS ---
XR humerus RT CLINICAL INDICATION: Follow-up fracture ITS.REASON: RT HUMERUS FX ORDERING PHYSICIAN: Kalpesh Medina MD PATIENT AGE: 63 years Comparison: 12/23/2018 FINDINGS: There is a displaced fracture involving the mid to proximal shaft of the humerus overall not significant change with 0% apposition and monitored medial and anterior displacement and angulation of the distal fracture fragment. No callus formation evident. IMPRESSION: Overall no change in the displaced and angulated mid to proximal shaft humeral fracture
[2019-01-03 14:59] LABS: Microscopic, Urine URINE MICROSCOPIC (MICROSCOPIC)
[2019-01-03 15:16] LABS: Appearance,Urine CLEAR (Clear); Blood, Urine Negative (Negative); Color,Urine YELLOW (Yellow); Glucose,Urine (UA) TRACE (Negative); Ketones,Urine TRACE (Negative); Leukocyte Esterase,Urine TRACE (Negative); Nitrate,Urine Negative (Negative); PH,Urine 5.5 (5.0-8.5); Protein,Urine 1+ (Negative); Specific Gravity, Urine >= 1.030 (1.005-1.030)
[2019-01-03 15:37] LABS: Bilirubin,Urine Negative (Negative)
[2019-01-03 15:40] LABS: Basophils % 0.7 % (0.1-2.0); Eosinophils # 0.1 K/mm3 (0.0-0.4); Eosinophils % 1.8 % (0.1-12.0); Hematocrit 33.4 % (37.0-47.0); Hemoglobin 10.8 g/dL (12.2-16.2); Lymphocytes % 15.1 % (10-50); Mean Corpuscular HGB Conc 32.3 g/dL (31.8-35.4); Mean Platelet Volume 9.1 fl (7.4-10.4); Monocytes # 0.3 K/mm3 (0.1-1.0); Monocytes % 4.5 % (1.7-9.3); Neutrophils # 5.2 K/mm3 (1.8-7.8); Platelet Count 349 K/mm3 (142-424); Red Blood Count 3.59 M/mm3 (4.20-5.40); Red Cell Distribution Width 13.2 % (11.5-17.5); White Blood Count 6.7 K/mm3 (4.8-10.8)
[2019-01-03 16:06] LABS: Bacteria,Urine 1+ /lpf
[2019-01-03 16:07] LABS: Alanine Aminotransferase 34 U/L (12-78); Albumin Level 3.4 gm/dL (3.4-5.0); Albumin/Globulin Ratio 0.9 (1.1-1.8); Alkaline Phosphatase 124 U/L (46-116); Anion Gap 16.9 mEq/L (5-15); Aspartate Amino Transferase 32 U/L (15-37); Bilirubin,Total 0.6 mg/dL (0.2-1.0); Blood Urea Nitrogen 22 mg/dL (7-18); Calcium 9.3 mg/dL (8.5-10.1); Carbon Dioxide 23 mmol/L (21.0-32.0); Chloride 102 mmol/L (98-107); Creatinine,Serum 1.26 mg/dL (0.55-1.02); Estimated Glomerular Filt Rate 43 ml/min (>60); GFR (African American) 52 ML/MIN (>60); Globulin 3.6 gm/dl (1.3-3.2); Glucose 105 mg/dL (74-106); Potassium 4.9 mmoL/L (3.5-5.1); Sodium 137 mmol/L (136-145)
== END ==
PROVIDERS: PCP Internal Medicine Adolescent Medicine; Visit Provider Orthopaedic Surgery
DX: Z01.818 Encounter for other preprocedural examination (principal); S42.301A Unspecified fracture of shaft of humerus, right arm, initial encounter for closed fracture
CPT/HCPCS: 36415; 73030; 73060; 80053; 81001; 85025; 86850; 93005

== ENCOUNTER 2019-01-05 07:04 | Observation (INO) ==
--- NOTE | 2019-01-05 09:01 | Progress Note ---
[facility] Anesthesia Checklist - Patient Identification Patient Identification: Arm Band - Structural Data Admitted From: Home Planned Operative Procedure/s: orif right humerus Consent for Planned Operative Procedure(s) Verified: Yes Verified Documents: Surgical Consent, History and Physical - NPO Status Verified Time NPO: 00:00 - Additional verifications Anesthesia Reactions: No - Airway Assessment C-Spine Mobility Assessed: Yes (mp3) TMJ Mobility Assessed: Yes Dentition: Good Dentition (Front right tooth chipped. Risks for dental damage with intubation explained. Pt verbalizes understanding) - Neurological Assessment Level of Consciousness: Awake, Alert - Anesthesia Plan Anesthesia Risk discussed: Yes Anesthesia Plan: Verified ASA Class: II Anesthesia Type: General (with ISB/supraclavicular nerve block) [facility] History I have reviewed the patient's past medical history: Yes Medical History: Reports:: Gastroesophageal Reflux Disease(GERD), Hyperlipidemia, Hypertension, Seizures (Last seizure ~ 8 yrs ago. Pt states stress related. No current medication) Denies:: Cancer, Diabetes Mellitus Type 1, Diabetes Mellitus Type 2, Internal Pacemaker, MRSA *Have you ever received a pneumonia vaccine?: Yes *Have you received a flu vaccine this season?: Yes Other Medical History: Denies: Blood Transfusion Reaction Other Surgeries: Yes: Appendectomy, Cholecystectomy, Diagnostic Lap, Other. No: Pacemaker Amputation: No Fractures: Yes - *Social History Educational Level: Completed College Smoking Status: Never smoker Alcohol Intake: never Alcohol Intake Frequency:: a few times a month *Occupational Status:: retired Housing: house Household Members: none *Travel in the last 8 weeks: None - Psychiatric History Expresses thoughts of harming self/others: None Suicide Plan Description: No Plan Family Hx:: Diabetes, Heart Attack, Hyperlipidemia, Hypertension
--- NOTE | 2019-01-05 14:35 | Progress Note ---
[facility] Anesthesia Record Part I Intake, IV Amount: 1,700 Estimated blood loss (mL): 400 Urine output (mL): 0 (NM) Blood Products used (#): none Blood Pressure: 130/78 SaO2: 93 Pulse Rate: 93 Respiratory Rate: 20 Temperature: 97.8 F Patient is:: Awake, Stable Stable to PACU at:: 14:30
--- NOTE | 2019-01-05 14:36 | Progress Note ---
[facility] Anesthesia Record Part II Discharge Time: 15:00 Destination: Medical Surgical Department PACU nurse assessment reviewed?: Yes Patient Condition:: Good Anesthesia Complications:: None Swallowing reflex intact?: Yes Cyanosis?: No
[2019-01-05 14:58] LABS: Hematocrit 29.9 % (37.0-47.0)
--- NOTE | 2019-01-05 15:21 | Operative Note ---
Date of procedure: 01/05/19 Pre-op Diagnosis:: Closed, displaced fracture shaft of humerus, right Post-op Diagnosis:: Same Procedure performed:: Open reduction and internal fixation, right humerus Surgeon:: Kalpesh Medina MD Retort Loader(s):: Anamaria Watson MAIL OPENER:: Other (Froylan Burnett) Anesthesia: GETA, regional Estimated blood loss (mL): 400 Clinical Note:: Patient is 63-year-old [id number] female who sustained a closed displaced fracture shaft of the RIGHT humerus when she tripped over a rug at home over 2 weeks ago. Initially patient was treated conservatively with a hanging cast but she had persistent severe displacement, angulation and shortening at the fracture site which was unacceptable. Following a detailed discussion, the patient opted for the surgical remediation in the form of an open reduction and internal fixation. Please refer to my office note for full details. Operative findings:: Closed long spiral fracture shaft of the upper and middle third of the RIGHT humerus with the early callus formation as noted on the preoperative imaging. The bone quality is good and the fracture is anatomically reducible easily. Operative note:: On the day of the surgery the patient was met in the preoperative area and was positively identified. She was accompanied by her sister at this time. I have again discussed the injury, management options including both nonsurgical and surgical. I then discussed with the patient and her sister, the option of continuation of the conservative management and accept a degree of malunion. However he was not willing to accept any malunion and strongly wished to proceed with surgery in the form of open reduction and internal fixation. I have discussed in detail the procedure, risks and benefits and alternatives. The complications discussed include but are not limited to- infection, bleeding, injury to nerves (especially radial nerve), blood vessels and tendons, incisional scar (cosmesis), DVT/PE, malunion, nonunion/delayed union, refracture, shoulder/elbow stiffness and pain, CRPS (complex regional pain syndrome- pain, sensory and temperature changes, swelling and stiffness), painful/prominent hardware, loss of fixation/hardware failure, incomplete relief of pain, incomplete return of function, and likely need for further surgery in future and also the risks of anesthesia including heart attack, stroke, and . We also discussed about the likely need for blood transfusion and the potential complications thereof. We have discussed how there is a small but real possibility of loss of use of the arm, loss of the limb (amputation) or loss of life itself. We have also explained how additional surgery may be required if there are any complications or the fracture fails to heal. We explained the postoperative pain management, recovery and rehabilitation, immobilization re quired, the likely need for physical therapy, the possibility of stiffness, chronic pain and we have also discussed the option of nonsurgical treatment. The patient and her sister expressed understanding and have asked appropriate questions. All their questions were answered and they verbalized a good understanding. She again expressed desires to proceed with the open reduction internal fixation of the RIGHT humeral shaft fracture. A physical examination was performed and documented. The limb was marked and initialed by me. Patient understood the risks, agreed to proceed with surgery, signed the consent form and no guarantees or assurances were given or implied. The patient was brought to the operating room and placed supine on the operating table. The RIGHT upper extremity was placed over a side table. All the bony prominences were appropriately padded. A general anesthesia was administered by the anesthetic team. The RIGHT upper extremity was then prepped and draped in the usual sterile fashion. Administration of prophylactic IV antibiotics (2 g of Ancef) was confirmed with the anesthetic team. Another 1 g of Ancef was administered after 2 hours of surgical time. A preprocedure timeout was performed as per the hospital protocol. The proposed skin incision and bony landmarks were marked with a skin marker for an anterolateral ([place]) approach to the humeral shaft. The skin incision was then made with the surgical blade her centering over the humeral shaft fracture. The dissection was carried through the subcutaneous tissue with the diathermy cautery. The cephalic vein was identified and protected throughout. The deep fascia was incised and the biceps muscle belly was pushed medially exposing the brachialis muscle. The brachialis muscle was split longitudinally in the middle exposing the humeral shaft and the fracture. There is extensive soft callus formation but the fracture is still mobile. By freeing up the callus and soft tissue the fracture ends were cleared and the humerus brought to length. The medullary canals of both the proximal and distal fragments were opened. The fracture ends were freshened by removing the soft callus. There is a small medial butterfly fragment and we decided to leave this alone. The main proximal and distal fragments were then reduced anatomically and held in place with a 9 holed, 4.5 mm broad Tate locking compression humeral plate and the bone clamps. After confirming satisfactory reduction under fluoroscopic control, we proceeded to fix the plate to the bone. The initial screws on either side of the fracture were applied in a compression mode and the rest of the screws were applied in a neutral fashion. One of the screws in the proximal fragment was loose and therefore it was replaced with a cancellous screw. This gave us a very good reduction and stable fixation. We screened the construct under image intensifier and noted that it is very stable and satisfactory. Fluoroscopic images were obtained and stored digitally. The wound is then thoroughly irrigated with normal saline. Hemostasis is obtained with the diathermy cautery. The wound is then closed in layers with 2-0 Vicryl to the deep fascia, 2-0 Vicryl for subcutaneous tissue and 4-0 subcuticular Monocryl sutures to the skin. Steri- Strips and sterile dressings were applied. We then applied a well-padded long- arm posterior Ortho-Glass splint with the elbow at 90 degrees of flexion. The patient was then reversed from the anesthetic and transferred onto the [facility]. She was then safely transported to the postoperative recovery area in a stable condition. She tolerated the procedure well and there were no immediate complications. At the end of the procedure the swab, needle and instrument counts were correct according to the scrub team. A portable x-ray of the RIGHT humerus was obtained in the recovery area and is noted to be satisfactory. After recovering from the anesthesia the patient was discharged home with the appropriate written instructions. Follow up in my office in 10-14 days time. Implants: [place] 4.5 mm basic fragment broad plate and screws. Industry tour sales representative: Edouard Hernández from [employer] [facility] Condition: stable Disposition: PACU Specimens:: None Complications:: None
--- NOTE | 2019-01-05 16:18 | Progress Note ---
Subjective Date: 01/05/19 Time: 15:50 Principal diagnosis: Fracture shaft humerus, right Interval history: Patient is status post ORIF right humeral shaft fracture post op day #0. Patient is lying down in bed and her sister and sister's are with her in the room. Patient says she is doing well and reports no problems. Patient had interscalene block and reports no pain or discomfort in her arm. She says her whole right upper limb is completely numb and paralyzed on the block. No history of any nausea or vomiting. PN: Obj Ex Vital signs: Temp Pulse Resp BP Pulse Ox 97.9 F 87 20 114/70 97 01/05/19 14:50 01/05/19 14:50 01/05/19 14:50 01/05/19 14:50 01/05/19 14:50 Narrative: Laboratory Results - last 24 hr 01/05/19 14:43: Hgb 10.0 L, Hct 29.9 L Exam General appearance: alert, active, awake, no acute distress Cardiovascular: regular rate & rhythm, normal peripheral pulses Respiratory: Clear to auscultation, normal breath sounds ABD: soft and non tender Neuro: alert, awake, oriented x 3 On examination of the right upper extremity, she is in a long-arm splint. No soakage of dressing noted. There is minimal drainage in the surgical drain. Her hand is somewhat swollen and edematous as was noted preoperatively. Radial pulse 2+. She has numbness in her hand from the nerve blocks. She is not able to actively mobilize the fingers at present. Progress Note: A&P (1) Humerus fracture Status: Acute Current Visit: No Assessment and Plan for All Diagnoses:: I have reviewed the clinical and operative findings and procedure performed with the patient and family. Patient is doing well and reports no problems. Contin ue IV fluids, as needed pain medication, elevation, icing and standard postoperative observations. Continue prophylactic IV antibiotics as ordered. I have also started her on oral ferrous sulfate as her preoperative hemoglobin was low. Case management consult regarding discharge planning. Likely discharge home tomorrow with home health.
[2019-01-06 07:36] LABS: Eosinophils % 0.1 % (0.1-12.0); Hematocrit 28.3 % (37.0-47.0); Hemoglobin 9.3 g/dL (12.2-16.2); Lymphocytes # 0.5 K/mm3 (0.7-4.5); Lymphocytes % 5.3 % (10-50); Mean Corpuscular HGB Conc 32.9 g/dL (31.8-35.4); Mean Corpuscular Hemoglobin 30.4 pg (27.0-31.2); Mean Corpuscular Volume 92.4 fl (81-99); Mean Platelet Volume 8.8 fl (7.4-10.4); Monocytes # 0.3 K/mm3 (0.1-1.0); Monocytes % 3.4 % (1.7-9.3); Neutrophils # 8.6 K/mm3 (1.8-7.8); Neutrophils % 91.1 % (37.0-80.0); Platelet Count 308 K/mm3 (142-424); Red Blood Count 3.06 M/mm3 (4.20-5.40); Red Cell Distribution Width 13.3 % (11.5-17.5); White Blood Count 9.4 K/mm3 (4.8-10.8)
--- NOTE | 2019-01-06 07:42 | Pharmacy Consult Notes ---
[facility] Pharmacy VTE Monitoring - Patient Demographics Admission date: 01/05/19 Report Date: 01/06/19 Time: 07:42 Allergies/Adverse Reactions: Patient Allergies No Known Allergies Allergy (Verified 01/04/19 10:05) Height: 1.47 m Weight: 75.948 kg - VTE Risk Labs: VTE Related Lab Results Hgb 9.3 g/dL (12.2-16.2) L 01/06/19 06:39 Hct 28.3 % (37.0-47.0) L 01/06/19 06:39 Plt Count 308 K/mm3 (142-424) 01/06/19 06:39 Was VTE Risk Assessment Performed: Yes VTE Score: 4 VTE Risk Level: Low Risk - Prophylaxis VTE Prophylaxis Ordered?: Yes Types of VTE Prophylaxis: TEDS Knee High Location of Applied Device: Bilateral Lower Extremeties - VTE Diagnosis Confirmed Treatment or plan recommended: Continue Current Treatment
[2019-01-06 07:49] LABS: Albumin Level 2.8 gm/dL (3.4-5.0); Albumin/Globulin Ratio 0.8 (1.1-1.8); Anion Gap 16.5 mEq/L (5-15); Bilirubin,Total 0.4 mg/dL (0.2-1.0); Calcium 8.8 mg/dL (8.5-10.1); Globulin 3.5 gm/dl (1.3-3.2); Potassium 4.5 mmoL/L (3.5-5.1); Total Protein,Serum 6.3 gm/dL (6.4-8.2)
[2019-01-06 11:05] LABS: Lymphocytes % 3 % (10-50); Monocytes % 2 % (2-9); Neutrophils % 95 % (42-76); RBC Morphology Normal; Total Cells Counted 100
--- NOTE | 2019-01-06 12:40 | Discharge Summary ---
General - General Admission date:: 01/05/19 Discharge date: 01/06/19 Objective Vital signs: Temp Pulse Resp BP Pulse Ox 98.2 F 90 18 121/69 97 01/06/19 11:43 01/06/19 11:43 01/06/19 11:43 01/06/19 11:43 01/06/19 11:43 Results Labs on day of discharge: Labs from last 24 hours 01/06/19 01/06/19 01/05/19 06:39 06:39 14:43 WBC 9.4 D RBC 3.06 L Hgb 9.3 L 10.0 L Hct 28.3 L 29.9 L MCV 92.4 MCH 30.4 MCHC 32.9 RDW 13.3 Plt Count 308 MPV 8.8 Neut % (Auto) 91.1 H Lymph % (Auto) 5.3 L [place] % (Auto) 3.4 Eos % (Auto) 0.1 Baso % (Auto) 0.0 L Neut # (Auto) 8.6 H Lymph # (Auto) 0.5 L [place] # (Auto) 0.3 Eos # (Auto) 0.0 Baso # (Auto) 0.0 Total Counted 100 Neutrophils % (Manual) 95 H Lymphocytes % (Manual) 3 L Monocytes % (Manual) 2 Platelet Estimate Normal RBC Morphology Normal Sodium 137 Potassium 4.5 Chloride 103 Carbon Dioxide 22 Anion Gap 16.5 H BUN 20 H Creatinine 0.90 D Estimated Creat Clear 67 Estimated GFR 63 Est GFR ( Amer) 76 D Glucose 118 H Calcium 8.8 Total Bilirubin 0.4 AST 57 H D ALT 53 D Alkaline Phosphatase 130 H Total Protein 6.3 L Albumin 2.8 L Globulin 3.5 H Albumin/Globulin Ratio 0.8 L DS: Diagnosis - Discharge Diagnosis (1) Humerus fracture Status: Acute Discharge Plan - Patient Discharge Instructions ACTIVITY: Continue current activity, Ambulate as tolerated DIET: regular diet Patient Instructions: How to Care for a Surgical Wound, DI for Open Reduction Internal Fixation Surgery, DI for Surgical Site Infection - Follow up Plan Follow up with: Kalpesh Medina MD [Staff Physician] - 1 week Disposition: Home Health Service Home Medications: Home Medications Medication Instructions Recorded Confirmed Type ALPRAZolam [Xanax 0.5mg tab] 0.5 mg PO TID 12/23/18 01/05/19 History Amlodipine Besylate [Norvasc 2.5mg 2.5 mg PO DAILY 12/23/18 01/05/19 History Tab] Atorvastatin Calcium [Atorvastatin 20 mg PO HS 12/24/18 01/05/19 History 20mg Tab] Carvedilol [Carvedilol 25mg Tab] 25 mg PO BID 12/24/18 01/05/19 History Losartan Potassium [Cozaar] 100 mg PO DAILY 12/24/18 01/06/19 History Calcium Carbonate/Vitamin D3 1 each PO DAILY 01/04/19 01/05/19 History [Calcium 1,000 + D3 Caplet] Oxycodone HCl/Acetaminophen 1 each PO TIDP PRN 01/04/19 01/06/19 History [Oxycodone W/Apap 325mg Tablet] Ferrous Sulfate [Ferrous Sulfate 325 mg PO BID #120 tablet 01/06/19 Rx 325mg Tablet] Hydrocod/Acet 5/325 mg [[place] 1 tab PO Q4HP PRN #60 tab 01/06/19 Rx 5/325mg tablet] Sennosides [Senokot 8.6mg tablet] 8.6 mg PO BIDP PRN #20 tablet 01/06/19 Rx Prescriptions/Medication Reconciliation: New Hydrocod/Acet 5/325 mg [[place] 5/325mg tablet] 1 tab PO Q4HP PRN #60 tab PRN Reason: Moderate To Severe Pain Ferrous Sulfate [Ferrous Sulfate 325mg Tablet] 325 mg PO BID #120 tablet Sennosides [Senokot 8.6mg tablet] 8.6 mg PO BIDP PRN #20 tablet PRN Reason: Constipation Continue Amlodipine Besylate [Norvasc 2.5mg Tab] 2.5 mg PO DAILY ALPRAZolam [Xanax 0.5mg tab] 0.5 mg PO TID Atorvastatin Calcium [Atorvastatin 20mg Tab] 20 mg PO HS Carvedilol [Carvedilol 25mg Tab] 25 mg PO BID Losartan Potassium [Cozaar] 100 mg PO DAILY Calcium Carbonate/Vitamin D3 [Calcium 1,000 + D3 Caplet] 1 each PO DAILY Discontinued Oxycodone HCl/Acetaminophen [Oxycodone W/Apap 325mg Tablet] 1 each PO TIDP PRN PRN Reason: pain
== END 2019-01-06 17:50 | disposition home health service (06) ==
LOC: OR 07:04 → 2ND 07:04
PROVIDERS: ADMIT Orthopaedic Surgery; ATTEND Orthopaedic Surgery
CPT/HCPCS: 36415; 73060; 76000; 80053; 85007; 85014; 85018; 85025; 94761; 96374; C1713; C1776; G0378; J2405

== ENCOUNTER → 2019-01-20 13:41 | Outpatient (CLI) | payer MEDICARE, OTHER, SELFPAY ==
--- NOTE | 2019-01-20 13:48 | XR_ITS ---
XR humerus RT CLINICAL INDICATION: Follow-up ORIF ITS.REASON: sp ORIF, SX 01/05/19 ORDERING PHYSICIAN: Kalpesh Medina MD PATIENT AGE: 63 years Comparison: 01/05/2019 FINDINGS: Status post ORIF comminuted proximal to mid humeral fracture. Air is good alignment of the fracture fragments. Fracture line is still visible. There may be some callus formation laterally. IMPRESSION: Good alignment status post ORIF comminuted humeral fracture with suggestion of callus formation laterally
== END ==
PROVIDERS: PCP Internal Medicine Adolescent Medicine; Visit Provider Orthopaedic Surgery
DX: Z48.89 Encounter for other specified surgical aftercare; S42.301A Unspecified fracture of shaft of humerus, right arm, initial encounter for closed fracture
CPT/HCPCS: 73060

== ENCOUNTER → 2019-02-08 13:06 | Outpatient (CLI) | payer MEDICARE, OTHER, SELFPAY ==
--- NOTE | 2019-02-08 13:11 | XR_ITS ---
XR humerus RT CLINICAL INDICATION: ITS.REASON: sp ORIF RT humerus dos 01/05/19 ORDERING PHYSICIAN: Kalpesh Medina MD PATIENT AGE: 63 years Comparison: 01/20/2019 FINDINGS: There is good alignment status post bone plate placement along the proximal mid and distal aspect of the right humerus there is a question of mild distraction of the superior screw within the bone plate not appearing quite flush with the cortex as it was on the previous exam. This however could be result of minimal rotation. Continued follow-up suggested. 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 Callus formation noted proximally IMPRESSION: 1. Good alignment status post ORIF mid shaft humeral fracture. 2. There is question of distraction of the superior screw which could be a function of patient positioning. Follow-up suggested
== END ==
PROVIDERS: PCP Internal Medicine Adolescent Medicine; Visit Provider Orthopaedic Surgery
DX: S42.309A Unspecified fracture of shaft of humerus, unspecified arm, initial encounter for closed fracture (principal); Z09 Encounter for follow-up examination after completed treatment for conditions other than malignant neoplasm
CPT/HCPCS: 73060

== ENCOUNTER → 2019-02-24 13:55 | Outpatient (CLI) | payer MEDICARE, OTHER, SELFPAY ==
--- NOTE | 2019-02-24 14:00 | XR_ITS ---
XR humerus RT CLINICAL INDICATION: Follow-up fracture ITS.REASON: sp ORIF rt humerus sx 01/05/19 ORDERING PHYSICIAN: Kalpesh Medina MD PATIENT AGE: 63 years Comparison: 02/08/2019 FINDINGS: Good alignment status post ORIF mid shaft humeral fracture with developing callus formation. Previously noted lucency distal to the tip of the upper screws somewhat less apparent. IMPRESSION: No change good alignment healing mid shaft humeral fracture status post ORIF
== END ==
PROVIDERS: PCP Internal Medicine Adolescent Medicine; Visit Provider Orthopaedic Surgery
DX: S42.309A Unspecified fracture of shaft of humerus, unspecified arm, initial encounter for closed fracture (principal); Z09 Encounter for follow-up examination after completed treatment for conditions other than malignant neoplasm
CPT/HCPCS: 73060

== ENCOUNTER 2019-04-01 10:24 | Outpatient (CLI) | payer MEDICARE, OTHER, SELFPAY ==
--- NOTE | 2019-04-01 10:34 | XR_ITS ---
XR ankle RT min 3V HISTORY: Right ankle pain and swelling ITS.REASON: S/P FALL, PAIN ORDERING PHYSICIAN: Yenny Harry APRN PATIENT AGE: 63 years Comparison: ): 12/12/2016 FINDINGS: There is prominent diffuse soft tissue swelling the ankle both medially and laterally. There is a transverse fracture through the medial malleolus with mild inferior displacement of the medial malleolar fracture fragment. The talus and calcaneus appear intact.. There is mild deformity of the distal fibula secondary to the old healed spiral oblique fracture. However in addition there apparently is a new somewhat irregular transverse fracture through the lateral malleolus which is nondisplaced. . The ankle mortise appears grossly normal. IMPRESSION: Acute fractures of the medial and lateral malleolus with prominent diffuse soft tissue swelling
[2019-04-01 11:14] VITALS: BMI 30.3
[2019-04-01 11:50] VITALS: BP 102/60; PULSE 73; RESP 18
[2019-04-01 11:58] LABS: Basophils % 0.6 % (0.1-2.0); Eosinophils # 0.2 K/mm3 (0.0-0.4); Eosinophils % 3.4 % (0.1-12.0); Hematocrit 38.9 % (37.0-47.0); Hemoglobin 12.2 g/dL (12.2-16.2); Mean Corpuscular HGB Conc 31.3 g/dL (31.8-35.4); Mean Corpuscular Hemoglobin 28.9 pg (27.0-31.2); Mean Corpuscular Volume 92.1 fl (81-99); Monocytes # 0.3 K/mm3 (0.1-1.0); Monocytes % 5.2 % (1.7-9.3); Neutrophils # 4.1 K/mm3 (1.8-7.8); Neutrophils % 72.7 % (37.0-80.0); Platelet Count 276 K/mm3 (142-424); Red Blood Count 4.23 M/mm3 (4.20-5.40); Red Cell Distribution Width 13.5 % (11.5-17.5); White Blood Count 5.6 K/mm3 (4.8-10.8)
[2019-04-01 12:14] LABS: Alanine Aminotransferase 33 U/L (12-78); Albumin Level 3.6 gm/dL (3.4-5.0); Albumin/Globulin Ratio 0.9 (1.1-1.8); Alkaline Phosphatase 136 U/L (46-116); Anion Gap 16.8 mEq/L (5-15); Aspartate Amino Transferase 24 U/L (15-37); Bilirubin,Total 0.6 mg/dL (0.2-1.0); Blood Urea Nitrogen 27 mg/dL (7-18); Calcium 9.6 mg/dL (8.5-10.1); Carbon Dioxide 24 mmol/L (21.0-32.0); Chloride 105 mmol/L (98-107); Chol/HDL Ratio 3.2 (1-3.5); Cholesterol 140 mg/dL (140-200); Creatinine Clearance Estimated 40 mL/min (50-200); Creatinine,Serum 1.44 mg/dL (0.55-1.02); Estimated Glomerular Filt Rate 37 ml/min (>60); GFR (African American) 44 ML/MIN (>60); Globulin 3.8 gm/dl (1.3-3.2); Glucose 101 mg/dL (74-106); HDL Cholesterol 44 mg/dL (29-89); LDL Cholesterol 72 mg/dL (0-130); Potassium 4.8 mmoL/L (3.5-5.1); Sodium 141 mmol/L (136-145); Total Protein,Serum 7.4 gm/dL (6.4-8.2); Triglycerides 122 mg/dL (30-200); VLDL Cholesterol 24 mg/dL (0-40)
[2019-04-01 13:05] VITALS: BP 127/67; PULSE 75; RESP 18; O2SAT 100
[2019-04-01 13:34] LABS: Amphetamine/Metha Screen,Urine Negative ng/mL (<1000); Barbiturates Screen,Urine Negative ng/mL (<200); Benzodiazepines Screen,Urine Positive ng/mL (<200); Cannabinoid Screen,Urine Negative ng/mL (<50); Cocaine Screen,Urine Negative ng/mL (<300); Methadone Screen,Urine Negative ng/mL (<300); Opiate Screen,Urine Negative ng/mL (<300); Phencyclidine Screen,Urine Negative ng/mL (<25)
--- NOTE | 2019-04-01 14:05 | CT_ITS ---
CT ankle RT wo con INDICATION: Follow-up ankle fracture/ORIF ITS.REASON: rt ankle fracture ORDERING PHYSICIAN: Yenny Harry APRN PATIENT AGE: 63 years COMPARISON: 04/01/2019 TECHNIQUE: Axial images are obtained without contrast. Sagittal and coronal reformatted images are reviewed as well. All CT scans at the facility use one or more dose reduction, viz: automated exposure control, ma/kV adjustment per patient size (including targeted exams where dose is matched to indication, i.e. head), or iterative reconstruction technique. FINDINGS: There is a mildly distracted transverse fracture at the base of the medial malleolus. The distal fracture fragment is placed distally x 4 mm on its medial margin. There is an oblique fracture of the distal aspect of the fibula. This fracture is at the level of ankle joint. The distal fracture fragment is displaced distally by approximately 3 mm. There are some small comminuted fragments at this region as well. There is a nondisplaced longitudinal fracture involving the posterior aspect of the distal tibia. There is soft tissue swelling both medially and laterally. There is mild widening of the tibiofibular joint space with mild widening of the ankle mortise with the talus slightly displaced laterally by approximately 3 mm with minimal lateral talar tilt inferiorly. IMPRESSION: Trimalleolar fracture as detailed above with mild widening of the ankle mortise with associated soft tissue swelling and mild distraction of the distal fragments of the distal fibula and medial malleolus.
--- NOTE | 2019-04-01 16:56 | SW/DCPLANNER ---
Received a phone call from Yenny Harry in [place] office. Yenny stated that patient is at [facility] and in need of a ride home. I spoke with patient and patient stated that she had no family or friends that would be able to transport her home. Patient has $8 out of $10 for private pay for [employer] to transport her home. I used our [employer] for other $10. [facility] staff in [facility] contacted me and stated patient was ready for transportation. I called [facility] and set up transportation home for this patient. I then went to [facility] to make sure patient was going to wait for transportation in [place]. When I arrived to [facility] patient had a cast placed and was unable to use crutches. [facility]. Once wheel chair was delivered myself and office staff (Buffy) transported this patient via wheel chair out to the [employer]. regional owner operator truck driver stated that he would take her home and would be willing to ask her neighbor to help get her in the home. Patient has discharged from [facility]. I will follow up with [place] to make sure all necessary paperwork has been received.
== END 2019-04-01 13:05 | disposition home or self-care (01) ==
LOC: RAD 10:30 → INF 11:38
PROVIDERS: PCP Internal Medicine Adolescent Medicine; Visit Provider Nurse Practitioner Family
DX: I95.9 Hypotension, unspecified; Z51.81 Encounter for therapeutic drug level monitoring; E78.5 Hyperlipidemia, unspecified; S82.891A Other fracture of right lower leg, initial encounter for closed fracture
CPT/HCPCS: 73610; 73700; 80053; 80061; 80305; 85025; 96360

== ENCOUNTER 2019-04-05 11:19 | Observation (INO) | payer MEDICARE, OTHER, SELFPAY ==
[2019-04-04 11:13] VITALS: BMI 30.3
--- NOTE | 2019-04-04 11:21 | SW/DCPLANNER ---
Received phone call from this patient regarding surgery for tomorrow. Patient had questions regarding discharge plans once she is ready for discharge. Patient is a Medicare patient and I explained to this patient that if she does NOT have a qualifying stay she will have to go to a skilled facility under private pay. Patient is NOT a Medicaid candidate. Patient stated that she can not afford a private pay rate. I explained to patient that [facility] could assist with DME and home health services. I also explained to patient the importance that if she can not afford private pay rate that she needs to contact family and friends to help assist her home. Patient stated that she was going to work on contacting family, friends, and neighbors today. Patient is planned for surgery tomorrow. Patient stated that her sister will be transporting her for surgery.
[2019-04-05] VITALS (19 sets, daily range): BP systolic 111–129; BP diastolic 60–80; PULSE 72–78; RESP 16–18; TEMP 36.3–43; O2SAT 92–99
--- NOTE | 2019-04-05 15:27 | SW/DCPLANNER ---
RECEIVED A CALL FROM [facility] STATING THIS PATIENT WAS DOWN THERE TO HAVE ANKLE SURGERY WITHOUT A PLAN IN PLACE FOR POST DISCHARGE... MS ORDONEZ WAS HERE ON THURSDAY TO SEE DR WORLEY AND LUCÍA AND I BOTH SPOKE WITH PATIENT AND PRESENTED OPTIONS, WE TOLD HER THIS WOULD BE CONSIDERED AN OUT PATIENT SURGERY AND WOULD GO HOME AFTER HER SURGERY, PATIENT ACKNOWLEDGED SHE WOULD SPEAK WITH HER SISTER AND COME UP WITH A PLAN... TODAY SHE HAD NOTHING IN PLACE, SHE DOES NOT QUALIFY TO STAY IN THE HOSPITAL FOR 3 MIDNIGHTS TO UTILIZE HER MEDICARE A BENEFIT IN A SKILLED FACILITY AND HER INCOME DOES NOT QUALIFY HER FOR MEDICAID. SHE DOES HAVE THE MEANS TO PAY PRIVATE PAY AND I EXPLAINED TO HER THAT SINCE SHE HAS NO ONE TO STAY WITH HER PAYING PRIVATE IS HER ONLY OPTION AT THIS TIME.. I EXPLORED BEDS AND VANESSA OSORIO IN [place] HAS A BED FOR HER AND CAN TAKE HER WITH ROOM RATES $204 PRIVATE AND $185 SEMIPRIVATE...SIVA STATED SHE WOULD HAVE TO SEE IF THEY HAVE A PRIVATE ROOM AVAILABLE FOR [facility] BUT SHOULD HAVE ONE THE END OF THE WEEK, SHE SAID THEY COULD BRING HER IN A SEMIPRIVATE AND MOVE HER ONCE ITS AVAILABLE.. I EXPLAINED TO HER SHE CAN GET HER THERAPY SHORT TERM UNDER HER PART B AND SHE IS RESPONSIBLE FOR HER MEDICATIONS OUT OF POCKET..HER SISTER WAS THERE AT BEDSIDE WHEN I EXPLAINED THIS TO THE BOTH OF THEM AND SHE WAS OK WITH GOING AND PAYING PRIVATELY... WILL SHARE THIS WITH DR WORLEY ONCE SHE COMES OUT OF SURGERY...DISCHARGE PLAN IS FOR HER TO DISCHARGE IN THE AM PENDING NO SETBACKS...
--- NOTE | 2019-04-05 18:22 | XR_ITS ---
XR ankle RT 2V HISTORY: ORIF right ankle ITS.REASON: C-ARM USED FOR ORIF RIGHT ANKLE ORDERING PHYSICIAN: Balbina Oviedo MD PATIENT AGE: 63 years Comparison: 04/01/2019 Fluoroscopy time: 1 minute and 45 seconds FINDINGS: There is been interval placement of lateral bone plate at the distal fibula with multiple screws as well as a longitudinal screw directed from the distal fibula proximally. Cerclage wire noted at the medial malleoli region with a stabilizing screw which is longitudinal and additional transverse screw. There is good alignment. IMPRESSION: Good alignment status post ORIF distal fibular and medial malleoli fracture
--- NOTE | 2019-04-05 18:37 | HMH.ANESCL ---
[facility] Anesthesia Checklist - Patient Identification Patient Identification: Arm Band, Verbal (Name & ) - Structural Data Admitted From: Home Planned Operative Procedure/s: orif r ankle Consent for Planned Operative Procedure(s) Verified: Yes Verified Documents: History and Physical - NPO Status Verified Time NPO: 00:00 - Additional verifications Patient : No Anesthesia Reactions: No Hx Blood Transfusions: No Blood Transfusion Reaction: No Cephalosporin Allergy: No Previous Colonoscopy: No - Cardiovascular Assessment Heart Sounds: S1 & S2 Pulse Strength: Baseline Pulse Rhythm: Regular Peripheral Edema: No - Airway Assessment C-Spine Mobility Assessed: Yes TMJ Mobility Assessed: Yes Dentition: Good Dentition - Neurological Assessment Level of Consciousness: Awake, Alert, Appropriate Hx Seizures: No Numbness or tingling in extremities: No - Anesthesia Plan Anesthesia Risk discussed: Yes Anesthesia Plan: Verified ASA Class: III Anesthesia Type: General [facility] History I have reviewed the patient's past medical history: Yes Medical History: Reports:: Anxiety, Gastroesophageal Reflux Disease(GERD), Hyperlipidemia, Hypertension, Seizures Denies:: Cancer, Diabetes Mellitus Type 1, Diabetes Mellitus Type 2, Internal Pacemaker, MRSA *Have you ever received a pneumonia vaccine?: Yes *Have you received a flu vaccine this season?: Yes Other Medical History: Denies: Blood Transfusion Reaction Laterality Cases: Right: Other Other Surgeries: Yes: Appendectomy, Cholecystectomy, Diagnostic Lap, Other. No: Pacemaker Amputation: No Fractures: Yes (ankle) - *Social History Educational Level: Completed College Smoking Status: Never smoker Alcohol Intake: never Alcohol Intake Frequency:: holidays/special occasions only *Occupational Status:: retired Housing: house Household Members: none *Travel in the last 8 weeks: None - Psychiatric History Expresses thoughts of harming self/others: None Suicide Plan Description: No Plan Pschychiatric History:: Reports:: Anxiety Family Hx:: Diabetes, Heart Attack, Hyperlipidemia, Hypertension
--- NOTE | 2019-04-05 18:39 | P.PN_ITS ---
[facility] Anesthesia Record Part II Discharge Time: 19:02 Destination: Medical Surgical Department PACU nurse assessment reviewed?: Yes Patient Condition:: Good Anesthesia Complications:: None Swallowing reflex intact?: Yes Cyanosis?: No
--- NOTE | 2019-04-05 18:39 | P.PN_ITS ---
[facility] Anesthesia Record Part I Intake, IV Amount: 1,400 Estimated blood loss (mL): 10 Urine output (mL): 0 Blood Products used (#): none Blood Pressure: 111/68 SaO2: 92 Pulse Rate: 77 Respiratory Rate: 18 Temperature: 97.5 F Patient is:: Awake, Stable Stable to PACU at:: 18:32
--- NOTE | 2019-04-05 19:39 | PC.NURSE ---
PT TO SEE PATIENT BEFORE DISCHARGE IN AM PER DR. WORLEY, ORDER PLACED
--- NOTE | 2019-04-05 19:40 | PC.NURSE ---
PT ARRIVED TO FLOOR FROM SURGERY AT 1916
--- NOTE | 2019-04-05 19:59 | PC.NURSE ---
1850-pt eating ice chips w/out difficulty. O2 @ 2L/NC placed on pt r/t being medicated for pain and to ease anxiety for comfort. VSS. Will continue to monitor.
--- NOTE | 2019-04-05 20:06 | PC.NURSE ---
1905-detailed report called to ESTRELLA Samson 1909-Pt transported to 2nd floor room 203 via hospital bed via ESTRELLA Whitaker and [employer] with rails up and left in care of ESTRELLA Chacko with bed locked in lowest position. Detailed report given to ESTRELLA Chacko at bedside. VSS. Pt stable and family at bedside.
--- NOTE | 2019-04-06 00:48 | PC.NURSE ---
Addendum entered by Effie Cruz RN 04/06/19 01:00: ON ADMISSION, PT REPORTED A HX OF SEIZURES. EDUCATED PT ON NEED FOR SEIZURE PAD APPLICATION TO SIDERAIL OF BED, PT STATED NO, I DO NOT NEED THEM. I REALLY DON'T THINK I WANT THEM ON THERE. REINFORCED THE USE PADS ARE FOR PT'S SAFETY. PT STILL REFUSED USE OF SEIZURE PADS. Original Note: A&OX3 SO FAR THIS SHIFT. C/O ACHING, SHARP PAIN IN R ANKLE, ADMINISTERED PRN PAIN MEDICATIONS PER MAR, PT REPORTS RELIEF FROM PAIN MEDICATIONS ON REASSESSMENTS OF ADMINISTRATION. RLE NOTED WITH DRESSING, CDI. RLE ELEVATED ON PILLOW WITH ICE PACK APPLIED POSTERIORLY TO R KNEE. R TOES EXPOSED ARE PINK IN COLORATION AND WARM PER PALPATION. LUNGS CLEAR T/O AUSCULTATION. HAS TOLERATED RA WELL. INCENTIVE SPIROMETER PROVIDED AND PT IS ABLE TO USE APPROPRIATELY PER RETURNING DEMONSTRATION OF USE. INSTRUCTED TO USE Q1HWA. BOWEL SOUNDS AUSCULTATED IN ALL QUADS, ABDOMEN IS NONDISTENDED, SOFT AND NONTENDER PER PALPATION. REPORTS LAST BM ON 04/05. PT REPORTED MY BOWEL MOVEMENT I HAD THIS MORNING WAS DARK FROM MY IRON PILL. PULSES +2, CAP REFILL <3SEC. GLASSES IN USE. VSS. WILL CONTINUE TO MONITOR.
[2019-04-06 00:50] VITALS: BP 126/57; PULSE 75; RESP 17; TEMP 36.8; O2SAT 96
[2019-04-06 01:50] VITALS: BP 98/60; PULSE 78; RESP 18; TEMP 36.6; O2SAT 95
[2019-04-06 04:00] VITALS: BP 126/69; PULSE 99; RESP 20; TEMP 36.8; O2SAT 97
[2019-04-06 04:44] VITALS: BMI 33.3
--- NOTE | 2019-04-06 04:45 | PC.NURSE ---
No acute changes noted. Pt has c/o discomfort to (R) ankle with a rating of 5 on MANAGER RADIO scale. Medicated per dec. DSG to RLE intact. Elevated on pillow with ice pack. Pt able to move toes. Pulse present. Toes warm and pink. VSS. Call light within reach. No concerns noted at this time. Will continue to monitor.
[2019-04-06 06:57] LABS: Alanine Aminotransferase 30 U/L (12-78); Albumin/Globulin Ratio 0.9 (1.1-1.8); Alkaline Phosphatase 127 U/L (46-116); Anion Gap 12.2 mEq/L (5-15); Aspartate Amino Transferase 28 U/L (15-37); Bilirubin,Total 0.3 mg/dL (0.2-1.0); Blood Urea Nitrogen 15 mg/dL (7-18); Calcium 8.2 mg/dL (8.5-10.1); Carbon Dioxide 24 mmol/L (21.0-32.0); Chloride 107 mmol/L (98-107); Creatinine Clearance Estimated 64 mL/min (50-200); Creatinine,Serum 0.91 mg/dL (0.55-1.02); Estimated Glomerular Filt Rate 62 ml/min (>60); GFR (African American) 75 ML/MIN (>60); Globulin 3.3 gm/dl (1.3-3.2); Glucose 93 mg/dL (74-106); Potassium 4.2 mmoL/L (3.5-5.1); Sodium 139 mmol/L (136-145); Total Protein,Serum 6.3 gm/dL (6.4-8.2)
[2019-04-06 07:36] LABS: Basophils % 0.4 % (0.1-2.0); Eosinophils # 0.2 K/mm3 (0.0-0.4); Eosinophils % 2.8 % (0.1-12.0); Hematocrit 32.7 % (37.0-47.0); Hemoglobin 10.9 g/dL (12.2-16.2); Lymphocytes # 1.3 K/mm3 (0.7-4.5); Lymphocytes % 19.4 % (10-50); Mean Corpuscular HGB Conc 33.4 g/dL (31.8-35.4); Mean Corpuscular Hemoglobin 29.5 pg (27.0-31.2); Mean Corpuscular Volume 88.1 fl (81-99); Mean Platelet Volume 9.8 fl (7.4-10.4); Monocytes # 0.6 K/mm3 (0.1-1.0); Monocytes % 8.8 % (1.7-9.3); Neutrophils # 4.7 K/mm3 (1.8-7.8); Neutrophils % 68.6 % (37.0-80.0); Platelet Count 191 K/mm3 (142-424); Red Blood Count 3.71 M/mm3 (4.20-5.40); White Blood Count 6.8 K/mm3 (4.8-10.8)
--- NOTE | 2019-04-06 07:44 | P.CONPHA_ITS ---
[facility] Pharmacy VTE Monitoring - Patient Demographics Admission date: 04/05/19 Report Date: 04/06/19 Time: 07:44 Allergies/Adverse Reactions: Patient Allergies No Known Allergies Allergy (Verified 04/01/19 15:05) Height: 1.47 m Weight: 72.263 kg - VTE Risk Labs: VTE Related Lab Results Hgb 10.9 g/dL (12.2-16.2) L 04/06/19 06:08 Hct 32.7 % (37.0-47.0) L 04/06/19 06:08 Plt Count 191 K/mm3 (142-424) 04/06/19 06:08 BUN 15 mg/dL (7-18) 04/06/19 06:08 Creatinine 0.91 mg/dL (0.55-1.02) 04/06/19 06:08 Estimated Creat Clear 64 mL/min (50-200) 04/06/19 06:08 Was VTE Risk Assessment Performed: Yes VTE Score: 2 Clinical Trial Participant: No - Prophylaxis VTE Prophylaxis Ordered?: Yes Types of VTE Prophylaxis: IPCS Knee High (POST OP) Location of Applied Device: Left Leg
[2019-04-06 07:48] VITALS: BP 125/77; PULSE 82; RESP 18; TEMP 36.8; O2SAT 98
--- NOTE | 2019-04-06 07:48 | HMH.CONS ---
*Admission Date: 04/05/19 *Reason for consult:: Medical management postoperatively ankle fracture *History of present illness: 63-year-old white female with ankle fracture. Long history of alcoholism, functional decline, malnutrition, early onset dementia. Fall at home with severe arthritis, scheduled ankle repair as an outpatient. Admitted yesterday, underwent surgery. Orthopedic notes and OR report reviewed. [facility] History I have reviewed the patient's past medical history: Yes Medical History: Reports:: Anxiety, Deep Vein Thrombosis, Gastroesophageal Reflux Disease(GERD), Hyperlipidemia, Hypertension Denies:: Cancer, Diabetes Mellitus Type 1, Diabetes Mellitus Type 2, Internal Pacemaker, MRSA, Seizures *Have you ever received a pneumonia vaccine?: Yes *Have you received a flu vaccine this season?: Yes Other Medical History: Reports: Anemia. Denies: Blood Transfusion Reaction Laterality Cases: Right: Other Other Surgeries: Yes: Appendectomy, Cholecystectomy, Diagnostic Lap, Other. No: Pacemaker Amputation: No Fractures: Yes (ankle) - *Social History Educational Level: Completed College Smoking Status: Never smoker Alcohol Intake: never Alcohol Intake Frequency:: holidays/special occasions only *Occupational Status:: retired Housing: house Household Members: none *Travel in the last 8 weeks: None - Psychiatric History Expresses thoughts of harming self/others: None Suicide Plan Description: No Plan Pschychiatric History:: Reports:: Anxiety Family Hx:: Cancer, Diabetes, Heart Attack, Hyperlipidemia, Hypertension Review of Systems - Review of Systems Review of systems:: pertinent systems reviewed and negative unless documented below Patient denies cardiac symptoms or pulmonary symptoms, reports good appetite of supper and breakfast. Otherwise is somewhat tangential and unable to get a real detailed neuro review of systems. Meds Home Medications Medication Instructions Recorded Confirmed Type ALPRAZolam [Xanax 0.5mg tab] 0.5 mg PO TID 12/23/18 04/05/19 History Amlodipine Besylate [Norvasc 2.5mg 2.5 mg PO DAILY 12/23/18 04/05/19 History Tab] Atorvastatin Calcium [Atorvastatin 20 mg PO HS 12/24/18 04/05/19 History 20mg Tab] Carvedilol [Carvedilol 25mg Tab] 25 mg PO BID 12/24/18 04/05/19 History Calcium Carbonate/Vitamin D3 1 each PO DAILY 01/04/19 04/05/19 History [Calcium 1,000 + D3 Caplet] Allergies Allergy/AdvReac Type Severity Reaction Status Date / Time No Known Allergies Allergy Verified 04/01/19 15:05 Exam Vital signs and Labs for Last 24 Hours: Temp Pulse Resp BP Pulse Ox 98.3 F 99 H 20 126/69 97 04/06/19 04:00 04/06/19 04:00 04/06/19 04:00 04/06/19 04:00 04/06/19 04:00 Laboratory Results - last 24 hr 04/06/19 06:08: WBC 6.8, RBC 3.71 L, Hgb 10.9 L, Hct 32.7 L, MCV 88.1, MCH 29.5, MCHC 33.4, RDW 13.0, Plt Count 191, MPV 9.8, Neut % (Auto) 68.6, Lymph % (Auto) 19.4, [place] % (Auto) 8.8, Eos % (Auto) 2.8, Baso % (Auto) 0.4, Neut # (Auto) 4.7, Lymph # (Auto) 1.3, [place] # (Auto) 0.6, Eos # (Auto) 0.2, Baso # (Auto) 0.0 04/06/19 06:08: Sodium 139, Potassium 4.2, Chloride 107, Carbon Dioxide 24, Anion Gap 12.2, BUN 15, Creatinine 0.91, Estimated Creat Clear 64, Estimated GFR 62, Est GFR ( Amer) 75, Glucose 93, Calcium 8.2 L, Total Bilirubin 0.3, AST 28, ALT 30, Alkaline Phosphatase 127 H, Total Protein 6.3 L, Albumin 3.0 L, Globulin 3.3 H, Albumin/Globulin Ratio 0.9 L I & O for Last 24 hours: Intake & Output 04/03/19 04/04/19 04/05/19 04/06/19 11:59 11:59 11:59 11:59 Intake Total 1460 / 1460 Output Total 325 / 325 Balance 1135 / 1135 Weight 145 lb 159 lb 5 oz Narrative: Patient is pleasant, talkative. Lungs clear, good air movement, heart rate regular without murmurs. Abdomen soft nontender. Right ankle and rigid splint. No edema. Able to wiggle her toes well. Good capillary refill. Left lower extremity without edema. Inter
--- NOTE | 2019-04-06 07:51 | P.CONS_ITS ---
*Admission Date: 04/05/19 *Reason for consult:: Medical management postoperatively ankle fracture *History of present illness: 63-year-old white female with ankle fracture. Long history of alcoholism, functional decline, malnutrition, early onset dementia. Fall at home with severe arthritis, scheduled ankle repair as an outpatient. Admitted yesterday, underwent surgery. Orthopedic notes and OR report reviewed. [facility] History I have reviewed the patient's past medical history: Yes Medical History: Reports:: Anxiety, Deep Vein Thrombosis, Gastroesophageal Reflux Disease(GERD), Hyperlipidemia, Hypertension Denies:: Cancer, Diabetes Mellitus Type 1, Diabetes Mellitus Type 2, Internal Pacemaker, MRSA, Seizures *Have you ever received a pneumonia vaccine?: Yes *Have you received a flu vaccine this season?: Yes Other Medical History: Reports: Anemia. Denies: Blood Transfusion Reaction Laterality Cases: Right: Other Other Surgeries: Yes: Appendectomy, Cholecystectomy, Diagnostic Lap, Other. No: Pacemaker Amputation: No Fractures: Yes (ankle) - *Social History Educational Level: Completed College Smoking Status: Never smoker Alcohol Intake: never Alcohol Intake Frequency:: holidays/special occasions only *Occupational Status:: retired Housing: house Household Members: none *Travel in the last 8 weeks: None - Psychiatric History Expresses thoughts of harming self/others: None Suicide Plan Description: No Plan Pschychiatric History:: Reports:: Anxiety Family Hx:: Cancer, Diabetes, Heart Attack, Hyperlipidemia, Hypertension Review of Systems - Review of Systems Review of systems:: pertinent systems reviewed and negative unless documented below Patient denies cardiac symptoms or pulmonary symptoms, reports good appetite of supper and breakfast. Otherwise is somewhat tangential and unable to get a real detailed neuro review of systems. Meds Home Medications Medication Instructions Recorded Confirmed Type ALPRAZolam [Xanax 0.5mg tab] 0.5 mg PO TID 12/23/18 04/05/19 History Amlodipine Besylate [Norvasc 2.5mg 2.5 mg PO DAILY 12/23/18 04/05/19 History Tab] Atorvastatin Calcium [Atorvastatin 20 mg PO HS 12/24/18 04/05/19 History 20mg Tab] Carvedilol [Carvedilol 25mg Tab] 25 mg PO BID 12/24/18 04/05/19 History Calcium Carbonate/Vitamin D3 1 each PO DAILY 01/04/19 04/05/19 History [Calcium 1,000 + D3 Caplet] Allergies Allergy/AdvReac Type Severity Reaction Status Date / Time No Known Allergies Allergy Verified 04/01/19 15:05 Exam Vital signs and Labs for Last 24 Hours: Temp Pulse Resp BP Pulse Ox 98.3 F 99 H 20 126/69 97 04/06/19 04:00 04/06/19 04:00 04/06/19 04:00 04/06/19 04:00 04/06/19 04:00 Laboratory Results - last 24 hr 04/06/19 06:08: WBC 6.8, RBC 3.71 L, Hgb 10.9 L, Hct 32.7 L, MCV 88.1, MCH 29.5, MCHC 33.4, RDW 13.0, Plt Count 191, MPV 9.8, Neut % (Auto) 68.6, Lymph % (Auto) 19.4, [place] % (Auto) 8.8, Eos % (Auto) 2.8, Baso % (Auto) 0.4, Neut # (Auto) 4.7, Lymph # (Auto) 1.3, [place] # (Auto) 0.6, Eos # (Auto) 0.2, Baso # (Auto) 0.0 04/06/19 06:08: Sodium 139, Potassium 4.2, Chloride 107, Carbon Dioxide 24, Anion Gap 12.2, BUN 15, Creatinine 0.91, Estimated Creat Clear 64, Estimated GFR 62, Est GFR ( Amer) 75, Glucose 93, Calcium 8.2 L, Total Bilirubin 0.3, AST 28,
--- NOTE | 2019-04-06 09:10 | SW/DCPLANNER ---
PATIENT HAS BEEN ACCEPTED TO [facility] AND HAS A CLEAR UNDERSTANDING THAT SHE WILL GO THERE PRIVATE PAY AND WILL BE ABLE TO TALENT ACQUISITION DIRECTOR SOME THERAPY UNDER HER PART B MEDICARE... I EXPLAINED TO HER THAT IT WOULD BE IN HER BEST INTEREST TO STAY UNTIL SHE CAN BARE WEIGHT ON THAT FOOT SINCE SHE LIVES AT HOME AND IS HER SOLE PROVIDER.. DR MCKEON SAW PATIENT THIS MORNING AND HE HAS CLEARED HER TO GO PENDING DR WORLEY AGREES....
--- NOTE | 2019-04-06 10:45 | HMH.PTEV ---
Physical Therapy Evaluation Rehab PT IP Evaluation Start: 04/06/19 08:00 Freq: ONCE Status: Active Protocol: Document 04/06/19 10:41 [email or web address] (Rec: 04/06/19 10:45 [email or web address] [id number]) Subjective/History History History This is the initial IP PT evaluation for Yari Melo. Pt is a 63 y/o female admitted to [facility] s/p ORIF R ankle fx. Pt rpeorts she was retrieving the paper and slipped in a hole on wet grass. Pt reports this is how she fx'd ankle Subjective Subjective Pt reports 5/10 pain in medial R ankle Rehab PT IP Eval Objective Appearance Patient Behavior Appropriate Patient Orientation Person,Place,Time,Name, Birthday,Day of Month,Day of Week,Month,Year Difficulty following instructions none Speech Pattern Clear Ambulation Patient Able to Ambulate Yes Ambulation Observation IP General Gait Pattern Observation Decrease Weight Bear (R) Ambulation Distance (feet) 2 Ambulation Assistive Device Rolling Walker Balance Ability to Arise Able, uses arms to help Sitting Balance Steady, safe Standing Balance Steady, wide stance Dynamic Sitting Balance Ability Good Dynamic Standing Balance Ability Poor Transfers Bed Transfer Ability Independent Chair Transfer Ability Independent Sit to Stand Bed Transfer Ability Supervision/Stand by Sit to Stand Chair Transfer Ability Supervision/Stand by Pain Right Ankle Pain Intensity 5 ROM RLE PT ROM Status ABN Abnormal ROM Comment hard splint R ankle all other ext. WNL MMT All Extremities PT MMT WNL Abnormal MMT Grade R ankle casted Rehab PT IP prob,goals,plan Problems Date of Evaluation: 04/06/19 PT IP Problems Gait,Self care,Safety Rehab Potential Rehab Potential Good Equipment Needs Assistive Devices Rolling / Wheeled Walker Plan PT Intervention Plan Transfers,Gait,Balance,Self care,Safety,Therapeutic Exercise PT Plan Frequency BID Duration LOS Discharge Goals Bed Transfer Ability Independent Sit to Stand Chair Transfer Ability Independent Ambulation Assistive Device Rolling Walker Ambulation Distance (feet) 2 Discharge Plan PT Discharge Plan dc pt t
[2019-04-06 11:32] VITALS: BP 123/72; PULSE 85; RESP 17; TEMP 36.7; O2SAT 98
--- NOTE | 2019-04-06 13:05 | HMH.ORTHPN ---
Subjective Date: 04/06/19 Time: 09:00 Principal diagnosis: s/p ORIF R ankle Interval history: The patient is doing well this morning. She states her nerve block has worn off and she is having pain in the ankle, but pain medication helps. Denies numbness or tingling in the toes. She is willing to work with PT and plans on being discharged to a [facility] later today. PN: Obj Ex Vital signs: Temp Pulse Resp BP Pulse Ox 98.1 F 85 17 123/72 98 04/06/19 11:32 04/06/19 11:32 04/06/19 11:32 04/06/19 11:32 04/06/19 11:32 - Constitutional no acute distress, obese, cooperative - Routine HEENT Exam Head: Present: normocephalic Eye: Present: EOMI ENT: Present: mucous membranes moist - Routine Respiratory Exam Present: CTA bilaterally. Absent: accessory muscle use, rhonchi, wheezes - Routine Cardiovascular Exam Present: RRR - Routine Abdominal Exam Present: soft. Absent: tenderness - Routine Extremities Exam Comments: R ankle splint intact wiggles toes, SILT with warm/pink toes calf proximal to splint is soft, non-tender intact flexion/extension of R knee w/o pain Progress Note: A&P (1) Obesity (BMI 30.0-34.9) Status: Chronic Current Visit: No (2) Renal insufficiency Status: Chronic Current Visit: No (3) S/P ORIF (open reduction internal fixation) fracture Status: Acute Current Visit: No (4) Hypertension Status: Chronic Current Visit: No Assessment and Plan for All Diagnoses:: 63yo F POD 1 s/p ORIF R ankle fracture -- NWB RLE -- elevate R ankle to alleviate swelling -- continue pain regimen -- encourage incentive spirometry -- ok to d/c to [facility] from ortho perspective, f/u with me in 1 week
--- NOTE | 2019-04-06 13:09 | P.PN_ITS ---
Subjective Date: 04/06/19 Time: 09:00 Principal diagnosis: s/p ORIF R ankle Interval history: The patient is doing well this morning. She states her nerve block has worn off and she is having pain in the ankle, but pain medication helps. Denies numbness or tingling in the toes. She is willing to work with PT and plans on being discharged to a long term later today. PN: Obj Ex Vital signs: Temp Pulse Resp BP Pulse Ox 98.1 F 85 17 123/72 98 04/06/19 11:32 04/06/19 11:32 04/06/19 11:32 04/06/19 11:32 04/06/19 11:32 - Constitutional no acute distress, obese, cooperative - Routine HEENT Exam Head: Present: normocephalic Eye: Present: EOMI ENT: Present: mucous membranes moist - Routine Respiratory Exam Present: CTA bilaterally. Absent: accessory muscle use, rhonchi, wheezes - Routine Cardiovascular Exam Present: RRR - Routine Abdominal Exam Present: soft. Absent: tenderness - Routine Extremities Exam Comments: R ankle splint intact wiggles toes, SILT with warm/pink toes calf proximal to splint is soft, non-tender intact flexion/extension of R knee w/o pain Progress Note: A&P (1) Obesity (BMI 30.0-34.9) Status: Chronic Current Visit: No (2) Renal insufficiency Status: Chronic Current Visit: No (3) S/P ORIF (open reduction internal fixation) fracture Status: Acute Current Visit: No (4) Hypertension Status: Chronic Current Visit: No Assessment and Plan for All Diagnoses:: 63yo F POD 1 s/p ORIF R ankle fracture -- NWB RLE -- elevate R ankle to alleviate swelling -- continue pain regimen -- encourage incentive spirometry -- ok to d/c to long term from ortho perspective, f/u with me in 1 week
--- NOTE | 2019-04-06 13:17 | HMH.DCSUM ---
General - General Admission date:: 04/05/19 Discharge date: 04/06/19 HPI HPI: 63-year-old female with a right ankle fracture sustained 3 weeks ago during a twisting injury walking across her yard. She lives alone and has no one to help care for her; she recently underwent open reduction internal fixation of a right humeral shaft fracture and had some difficulty caring for herself postoperatively. Her current ankle fracture necessitated surgical fixation, which was performed 04/05/2019 without complication. She is to be transferred to a fdc for postoperative care and assistance with ADLs, she is unable to safely return home and care for herself. Hospital Course Hospital Course: The patient underwent ORIF R ankle fracture 04/05/2019 without complication. Nerve block was performed for post-operative pain control, which provided good analgesia until the morning of POD 1, when it had worn off. Oral pain medication provided adequate relief from pain. There were no medical issues during her admission. Physical therapy worked with her and was able to mobilize with a walker. She was also seen by Dr. Shen, who cleared her medically for discharge. She was appropriate for transfer to the fdc the afternoon of POD 1. Objective Vital signs: Temp Pulse Resp BP Pulse Ox 98.1 F 85 17 123/72 98 04/06/19 11:32 04/06/19 11:32 04/06/19 11:32 04/06/19 11:32 04/06/19 11:32 - *Routine HEENT Exam Head: Present: normocephalic Eye: Present: EOMI ENT: Present: mucous membranes moist - *Routine Respiratory Exam Present: CTA bilaterally. Absent: accessory muscle use, rhonchi, wheezes - *Routine Cardiovascular Exam Present: RRR - *Routine Abdominal Exam Present: soft. Absent: tenderness - *Routine Extremities Exam Comments: R ankle splint intact wiggles toes, SILT with warm/pink toes calf proximal to splint is soft, non-tender intact flexion/extension of R knee w/o pain - *Routine Neurological Exam Present: alert, moving all extremities, normal tone Results Labs on day of discharge: Labs from last 24 hours 04/06/19 04/06/19 06:08 06:08 WBC 6.8 RBC 3.71 L Hgb 10.9 L Hct 32.7 L MCV 88.1 MCH 29.5 MCHC 33.4 RDW 13.0 Plt Count 191 MPV 9.8 Neut % (Auto) 68.6 Lymph % (Auto) 19.4 [place] % (Auto) 8.8 Eos % (Auto) 2.8 Baso % (Auto) 0.4 Neut # (Auto) 4.7 Lymph # (Auto) 1.3 [place] # (Auto) 0.6 Eos # (Auto) 0.2 Baso # (Auto) 0.0 Sodium 139 Potassium 4.2 Chloride 107 Carbon Dioxide 24 Anion Gap 12.2 BUN 15 Creatinine 0.91 Estimated Creat Clear 64 Estimated GFR 62 Est GFR ( Amer) 75 Glucose 93 Calcium 8.2 L Total Bilirubin 0.3 AST 28 ALT 30 Alkaline Phosphatase 127 H Total Protein 6.3 L Albumin 3.0 L Globulin 3.3 H Albumin/Globulin Ratio 0.9 L DS: Diagnosis - Discharge Diagnosis (1) Obesity (BMI 30.0-34.9) Status: Chronic (2) Renal insufficiency Status: Chronic (3) S/P ORIF (open reduction internal fixation) fracture Status: Acute (4) Hypertension Status: Chronic Discharge Plan - Patient Discharge Instructions ACTIVITY: Up with assistance (NWB RLE, up with assist and walker ) DIET: continue same diet Additional Instructions: strict NON-WEIGHTBEARING right lower extremity -- up ad piero but *with assist* and using a walker -- continue PT/OT at fdc -- do not remove splint -- elevate RLE frequently to alleviate swelling -- ice will not penetrate splint, but ice pack in popliteal fossa may help -- pain Rx given -- f/u with PCP within 1-2 weeks -- f/u with Dr. Oviedo in 1 week Patient Instructions: How to Care for a Surgical Wound, Ankle Fracture, DI for Ankle Fracture, DI for Open Reduction Internal Fixation Surgery, Surgical Site Infection - Follow up Plan Follow up with: Balbina Oviedo MD [Physician] - 1 week Disposition: [facility]
--- NOTE | 2019-04-06 13:19 | PC.NURSE ---
1130- called Dr. Shen's office regarding pt ready for dc per Dr. Oviedo. 1145- Called Dr. Quinones's office and they state that Dr. Oviedo will put in dc order as soon as she gets a chance.
--- NOTE | 2019-04-06 13:20 | P.DS_ITS ---
General - General Admission date:: 04/05/19 Discharge date: 04/06/19 HPI HPI: 63-year-old female with a right ankle fracture sustained 3 weeks ago during a twisting injury walking across her yard. She lives alone and has no one to help care for her; she recently underwent open reduction internal fixation of a right humeral shaft fracture and had some difficulty caring for herself postoperatively. Her current ankle fracture necessitated surgical fixation, which was performed 04/05/2019 without complication. She is to be transferred to a half-way for postoperative care and assistance with ADLs, she is unable to safely return home and care for herself. Hospital Course Hospital Course: The patient underwent ORIF R ankle fracture 04/05/2019 without complication. Nerve block was performed for post-operative pain control, which provided good analgesia until the morning of POD 1, when it had worn off. Oral pain medication provided adequate relief from pain. There were no medical issues during her admi ssion. Physical therapy worked with her and was able to mobilize with a walker. She was also seen by Dr. Shen, who cleared her medically for discharge. She was appropriate for transfer to the half-way the afternoon of POD 1. Objective Vital signs: Temp Pulse Resp BP Pulse Ox 98.1 F 85 17 123/72 98 04/06/19 11:32 04/06/19 11:32 04/06/19 11:32 04/06/19 11:32 04/06/19 11:32 - *Routine HEENT Exam Head: Present: normocephalic Eye: Present: EOMI ENT: Present: mucous membranes moist - *Routine Respiratory Exam Present: CTA bilaterally. Absent: accessory muscle use, rhonchi, wheezes - *Routine Cardiovascular Exam Present: RRR - *Routine Abdominal Exam Present: soft. Absent: tenderness - *Routine Extremities Exam Comments: R ankle splint intact wiggles toes, SILT with warm/pink toes calf proximal to splint is soft, non-tender intact flexion/extension of R knee w/o pain - *Routine Neurological Exam Present: alert, moving all extremities, normal tone Results Labs on day of discharge: Labs from last 24 hours 04/06/19 04/06/19 06:08 06:08 WBC 6.8 RBC 3.71 L Hgb 10.9 L Hct 32.7 L MCV 88.1 MCH 29.5 MCHC 33.4 RDW 13.0 Plt Count 191 MPV 9.8 Neut % (Auto) 68.6 Lymph % (Auto) 19.4 [place] % (Auto) 8.8 Eos % (Auto) 2.8 Baso % (Auto) 0.4 Neut # (Auto) 4.7 Lymph # (Auto) 1.3 [place] # (Auto) 0.6 Eos # (Auto) 0.2 Baso # (Auto) 0.0 Sodium 139 Potassium 4.2 Chloride 107 Carbon Dioxide 24 Anion Gap 12.2 BUN 15 Creatinine 0.91 Estimated Creat Clear 64 Estimated GFR 62 Est GFR ( Amer) 75 Glucose 93 Calcium 8.2 L Total Bilirubin 0.3 AST 28 ALT 30 Alkaline Phosphatase 127 H Total Protein 6.3 L Albumin 3.0 L Globulin 3.3 H Albumin/Globulin Ratio 0.9 L DS: Diagnosis - Discharge Diagnosis (1) Obesity (BMI 30.0-34.9) Status: Chronic (2) Renal insufficiency Status: Chronic (3) S/P ORIF (open reduction internal fixation)
--- NOTE | 2019-04-06 13:42 | PC.NURSE ---
Report called Ginny Handy at [facility].
--- NOTE | 2019-04-06 14:38 | PC.NURSE ---
Discussed with case management, Irasema that pt doesn't have a ride to [place], states that pt can go by ambulance but will be private pay. Spoke with pt and informed her that ambulance ride will be private pay, $650 plus $15 a mile and that ambulance will require payment at time of service. Pt verbalized understanding.
--- NOTE | 2019-04-06 15:49 | HMH.OPNOTE ---
Date of procedure: 04/05/19 Pre-op Diagnosis:: R trimalleolar ankle fracture Post-op Diagnosis:: R trimalleolar ankle fracture Procedure performed:: ORIF R ankle; fixation of medial/lateral malleoli, non-operative treatment of posterior malleolus Surgeon:: Balbina Oviedo MD Contract Programmer(s):: Kalpesh Medina MD CHIEF ENGINEER WATERWORKS:: Ron Caceresferty Anesthesia: GETA, regional Estimated blood loss (mL): 25 Clinical Note:: 63yo F with trimalleolar fracture of right ankle sustained around 3 weeks ago while walking across her yard. She stepped in what may have been a hole or a low spot in the yard, and rolled the ankle. She assumed it was an ankle sprain and continued to walk on the ankle for 3 weeks. She initially had a lot of swelling, but it has resolved; the pain persisted so she went to her PCP for x-rays. I recommended surgical fixation of the fracture; the medial/lateral malleoli required fixation, but I believe the posterior malleolus can be treated non-operatively. I discussed the risks of surgery, including bleeding, infection, non-union, hardware failure, persistent pain, post-traumatic arthritis, and need for further surgery. The patient vocalized understanding and provided informed consent. She lives alone and does not believe she can take care of herself without walking on the ankle; the plan is to admit for observation and transfer to a long-term for rehab. Operative findings:: IMPLANTS: Tate + Synthes ankle systems used distal fibula: 4.0mm partially threaded cannulated screw x 55mm long ([place]) -- intramedullary Synthes 1/3 tubular plate -- trimmed and bent to make a hook plate + 3.5mm cortical screws x2 (14 / 12mm), 3.5mm locking screws x2, 10mm each medial malleolus: 4.0mm partially threaded cannulated screw x55mm long x1 ([place]) 3.5 x 32mm cortical screw 2.0mm k-wire x1 18G wire -- tension band construct Operative note:: Patient was identified in preoperative holding and the right ankle signed by myself. Nerve block was performed by anesthesia in holding. She was then taken to the operating room and placed supine on the OR table. IV antibiotics were given and general anesthesia induced. Once the patient was asleep, the splint was removed from the ankle and soft tissues appeared amenable to fixation. Nonsterile tourniquet was placed on the right thigh and the ankle prepped and draped in the usual sterile fashion. Timeout was performed, identifying the correct patient, correct procedure, and correct site. The procedure was begun by using the Esmarch to exsanguinate the right lower extremity and elevating the tourniquet to 250 mmHg. C-arm was used to localize the fracture site over the distal fibula. Longitudinal incision was made over the lateral aspect of the ankle, centered over the fibula and extending from the tip of the fibula to around 8 cm proximally. After the skin was incised, subcutaneous tissue was spread bluntly with Metzenbaum scissors until muscle/fascial layer encountered. A new, inside knife was used to cut down directly onto the fibula and periosteum was lifted anteriorly and posteriorly. Fracture site was identified; it was very distal, with the distal fragment roughtly 1cm in size. A Leeds was inserted into the fracture site and used to aid with reduction. There was no callus or debris at the fracture site and only a small amount of hematoma, which was removed with a rongeur. Pointed reduction forceps were used to hold fracture reduction and fibular length/alignment confirmed on C arm. Both Tate and Synthes locking fibular plates were placed over the bone as distally as possible, but only 1 screw would have been possible in the distal fragment. The bone quality was poor and the fracture location/size did not appear amenable to interfragmentary compression with a lag screw, and no plate was appropriate, [facility]
--- NOTE | 2019-04-06 17:01 | SW/DCPLANNER ---
PATIENT WAS ACCEPTED TO [facility] AND SISTER WAS SUPPOSE TO COME AND TAKE PATIENT THERE, SISTER CALLED AND STATED SHE WAS TOO ILL TO COME AND TAKE HER AND SHE HAD NO ONE ELSE TO TAKE HER.. I EXPLAINED TO HER THAT WE COULD GET AN AMBULANCE AND IT WOULD COSTS HER, SHE APPEARED UPSET THAT SHE WAS HAVING TO A PAY FOR IT.. WHEN THE AMBULANCE GOT HERE SHE TOLD THEM SHE DID NOT WANT TO USE THEM, I WAS CALLED BACK TO HER ROOM AND EXPLAINED TO THE ROUTE SALESPERSON THAT WAS THE ONLY WAY SHE HAD TO GET THERE AND SHE ASKED IF I WOULD CALL [facility] SINCE PATIENT HAD HER WHEELCHAIR, I DID NOT REALIZE HER WHEELCHAIR WAS WITH HER BUT I DID CALL AND [facility] STATED IT WOULD BE A LITTLE BIT BEFORE THEY COULD PICK HER UP AND THE AMBULANCE WENT ON AND TOOK HER..... I CALLED BACK TO STOP THEM FROM MAKING THE TRIP TO THE HOSPITAL TO GET HER...
== END 2019-04-06 15:25 ==
LOC: 2ND 11:20
PROVIDERS: Admitting Provider Orthopaedic Surgery; PCP Internal Medicine Adolescent Medicine; Visit Provider Orthopaedic Surgery
PROC: 0QSJ04Z Reposition Right Fibula with Internal Fixation Device, Open Approach (ICD-10-PCS; CPT 27814; principal; 2019-04-05 12:45)
DX: S82.851A Displaced trimalleolar fracture of right lower leg, initial encounter for closed fracture (principal); W17.89XA Other fall from one level to another, initial encounter; Y92.017 Garden or yard in single-family (private) house as the place of occurrence of the external cause; I10 Essential (primary) hypertension; E78.5 Hyperlipidemia, unspecified; Z79.899 Other long term (current) drug therapy; R56.9 Unspecified convulsions
CPT/HCPCS: 27814; 36415; 73600; 76000; 80053; 85025; 96374; 97161; C1713; G0378; J2405

== ENCOUNTER → 2019-04-13 14:15 | Outpatient (CLI) | payer MEDICARE, OTHER, SELFPAY ==
--- NOTE | 2019-04-13 14:20 | XR_ITS ---
XR ankle RT min 3V HISTORY: Follow-up ORIF ITS.REASON: post op DOS: 04/06 NWB ORDERING PHYSICIAN: Balbina Oviedo MD PATIENT AGE: 63 years Comparison: 04/01/2019 FINDINGS: Status post ORIF. Lateral bone plate noted the distal fibula with good alignment of the fibular fracture. A longitudinal screw also is present within the distal fibula extending from the tip directed caudad. There is a longitudinal and transverse screw within the medial malleoli region with a cerclage wire and a pin. A cerclage wire is attached to the transverse screw. There is good alignment of the medial malleoli fracture. There is posterior splint in place. On the lateral view there is a small density along the anterior aspect of the tibiotalar joint measuring 4 mm and could be due to small bony fragment. IMPRESSION: Good alignment status post ORIF distal tib-fib fracture.
== END ==
PROVIDERS: PCP Internal Medicine Adolescent Medicine; Visit Provider Orthopaedic Surgery
DX: S82.853A Displaced trimalleolar fracture of unspecified lower leg, initial encounter for closed fracture (principal)
CPT/HCPCS: 73610

== ENCOUNTER → 2019-05-09 13:09 | Outpatient (CLI) | payer MEDICARE, OTHER, SELFPAY ==
--- NOTE | 2019-05-09 13:16 | XR_ITS ---
XR ankle RT min 3V HISTORY: Follow-up fracture/ORIF ITS.REASON: rt ankle fx post op ORDERING PHYSICIAN: Balbina Oviedo MD PATIENT AGE: 63 years Comparison: 04/13/2019 FINDINGS: Status post ORIF distal fibula and medial malleolus fracture. Hardware is unchanged with good alignment. Fracture lines are still visible. The casted been removed. IMPRESSION: Good alignment status post ORIF right ankle
== END ==
PROVIDERS: PCP Internal Medicine Adolescent Medicine; Visit Provider Orthopaedic Surgery
DX: S82.853A Displaced trimalleolar fracture of unspecified lower leg, initial encounter for closed fracture (principal)
CPT/HCPCS: 73610

== ENCOUNTER 2019-05-09 14:42 | Outpatient (RCR) | payer MEDICARE, OTHER, SELFPAY | END 2019-05-09 15:00 | disposition home or self-care (01) | LOC: PT 14:42 | PROVIDERS: Visit Provider Orthopaedic Surgery | DX: S82.853A Displaced trimalleolar fracture of unspecified lower leg, initial encounter for closed fracture (principal) | CPT/HCPCS: 97760 ==

== ENCOUNTER → 2019-06-06 09:55 | Outpatient (CLI) | payer MEDICARE, OTHER, SELFPAY ==
--- NOTE | 2019-06-06 10:02 | XR_ITS ---
XR ankle RT min 3V HISTORY: Follow-up ORIF ITS.REASON: rt ankle fracture ORDERING PHYSICIAN: Balbina Oviedo MD PATIENT AGE: 63 years Comparison: 05/09/2019 FINDINGS: No change status post ORIF distal fibula and medial malleoli region with bone plates and multiple screws in place as previously described. Fracture line at the base of the medial malleolus appear somewhat less apparent. There remains good alignment. IMPRESSION: No change status post ORIF distal tib-fib with good alignment
== END ==
PROVIDERS: PCP Internal Medicine Adolescent Medicine; Visit Provider Orthopaedic Surgery
DX: S82.851A Displaced trimalleolar fracture of right lower leg, initial encounter for closed fracture (principal)
CPT/HCPCS: 73610

== ENCOUNTER → 2019-07-08 12:49 | Outpatient (CLI) | payer MEDICARE, OTHER, SELFPAY ==
--- NOTE | 2019-07-08 12:58 | XR_ITS ---
PROCEDURE: XR ANKLE WT BEARING RT MIN 3V CLINICAL INDICATION: s/p ankle sx Follow-up fracture/ORIF COMPARISON: ANKR3 ANKLE-RT-3 VIEWS from 12/17/2016 ANKR3 ANKLE-RT-3 VIEWS from 12/26/2016 ANKL3 ANKLE-LT-3 VIEWS from 01/22/2017 from 06/06/2019 FINDINGS: Status post ORIF distal tib fib fracture. No change in the hardware at the distal fibula and medial malleolar region as previously described with good alignment of the fracture fragments. IMPRESSION: Good alignment status post ORIF distal tib fib as previously described Dictated by: Srikanth Gonzales MD 07/08/2019 14:08 Electronically signed by Srikanth Gonzales MD in [place] 07/08/2019 14:08
== END ==
PROVIDERS: PCP Internal Medicine Adolescent Medicine; Visit Provider Orthopaedic Surgery
DX: S82.853A Displaced trimalleolar fracture of unspecified lower leg, initial encounter for closed fracture (principal)
CPT/HCPCS: 73610; 97760

== ENCOUNTER 2019-07-08 14:56 | Outpatient (RCR) | payer MEDICARE, OTHER, SELFPAY | END 2019-07-08 15:10 | disposition home or self-care (01) | LOC: PT 14:56 | PROVIDERS: Visit Provider Orthopaedic Surgery | DX: S82.851D Displaced trimalleolar fracture of right lower leg, subsequent encounter for closed fracture with routine healing (principal) | CPT/HCPCS: 97760 ==

== ENCOUNTER 2020-02-10 15:31 | Observation (INO) | payer MEDICARE, OTHER, SELFPAY ==
[2020-02-10 15:41] VITALS: BMI 31.1
--- NOTE | 2020-02-10 15:44 | XR_ITS ---
PROCEDURE: XR CHEST 2V CLINICAL HISTORY: shortness of breath Shortness of air with weakness COMPARISON: CXR1 CHEST-PORTABLE from 03/06/2017 CXR2 XR chest AP from 12/23/2018 FINDINGS: The cardiomediastinal silhouette and pulmonary vascularity are within normal limits. The lungs are clear without infiltrates, suspicious nodules, or pleural effusions. There is an old fracture of the right 5th, 6, and 8th ribs. No acute bony findings. IMPRESSION: No acute findings. Dictated by: Srikanth Gonzales MD 02/10/2020 16:17 Electronically signed by Srikanth Gonzales MD in [place] 02/10/2020 16:17
--- NOTE | 2020-02-10 15:52 | HMH.PHAVTE ---
[facility] Pharmacy VTE Monitoring - Patient Demographics Admission date: 02/10/20 Report Date: 02/10/20 Time: 15:52 Allergies/Adverse Reactions: Patient Allergies No Known Allergies Allergy (Verified 07/08/19 14:05) - Prophylaxis VTE Prophylaxis Ordered?: Yes Types of VTE Prophylaxis: TEDS Knee High Location of Applied Device: Bilateral Lower Extremeties - VTE Diagnosis Confirmed Treatment or plan recommended: Continue Current Treatment
--- NOTE | 2020-02-10 15:57 | HMH.HP ---
*Admission Date: 02/10/20 <Yenny Harry 02/10/20 16:03> *Chief complaint: SOA, weakness, low blood pressure <Yenny Harry 02/10/20 16:03> *History of present illness: Rounded on patient in the evening. She denies to me any alcohol use. Labs back at this time, has an AST to ALT ratio of greater than 2. Is pleasant but appears anxious and jittery. Blood pressure has improved. Alert and oriented to person place and time. Denies any chest pain, shortness of breath, nausea but does complain of some upset stomach and loose stools. Also complaining of some right upper quadrant discomfort when it is pressed on. <LibanMiguel 02/10/20 18:51> 64 year old female with h/o ETOH abuse, HTN, and anemia presented to PCP office for routine med check. She was noted to have significant SOA with minimal exertion. Reports SOA and weakness x 1 week. Denies any cough or chest congestion. No fevers. Denies any recent ETOH use. She was found to be hypotensive with manual b/p 70/p bilaterally. Patient was direct admitted for IV hydration, labs and further evaluation. <Yenny Harry 02/10/20 16:03> [facility] History I have reviewed the patient's past medical history: Yes <Yenny Harry 02/10/20 16:03> Medical History: Reports:: Anxiety, Deep Vein Thrombosis, Gastroesophageal Reflux Disease(GERD), Hyperlipidemia, Hypertension Denies:: Cancer, Diabetes Mellitus Type 1, Diabetes Mellitus Type 2, Internal Pacemaker, MRSA, Seizures <PieroYenny 02/10/20 16:03> *Have you ever received a pneumonia vaccine?: Yes <PieroYenny 02/10/20 16:03> *Have you received a flu vaccine this season?: No <PieroYenny 02/10/20 16:03> Other Medical History: Reports: Anemia. Denies: Blood Transfusion Reaction <PieroYenny 02/10/20 16:03> Laterality Cases: Right: Other <HarryYenny 02/10/20 16:03> Other Surgeries: Yes: Appendectomy, Cholecystectomy, Colonoscopy, Diagnostic Lap, Other. No: Pacemaker <Belinda Harryi - 02/10/20 16:03> Amputation: No <[facility] 02/10/20 16:03> Fractures: Yes (ankle) [facility] 16:03> - *Social History Smoking Status: Never smoker <[facility] 02/10/20 16:03> Alcohol Intake: never <[facility] 02/10/20 16:03> Alcohol Intake Frequency:: holidays/special occasions only <[facility] 02/10/20 16:03> *Occupational Status:: retired <[facility] 02/10/20 16:03> Housing: house <Belinda Harryi 02/10/20 16:03> Household Members: none <[facility] 02/10/[facility] 16:03> *Travel in the last 8 weeks: None <Belinda Harryi 02/10/20 16:03> - Psychiatric History Pschychiatric History:: Reports:: Anxiety <Belinda Harryi 02/10/20 16:03> Family Hx:: Cancer, Diabetes, Heart Attack, Hyperlipidemia, Hypertension <[facility] 02/10/20 16:03> Review of Systems - Review of Systems Review of systems:: pertinent systems reviewed and negative unless documented below (14 point review of systems performed, pertinent positives and negatives as per HPI) <Miguel Louie 02/10/20 18:51> pertinent systems reviewed and negative unless documented below <[facility] 02/10/20 16:03> - Constitutional Reports fatigue, Reports lack of energy, Reports malaise, Reports weakness <[facility] 02/10/20 16:03> - *Cardiovascular Reports shortness of breath with activity <[facility] 02/10/20 16:03> Meds Home Medications Medication Instructions Recorded Confirmed Type ALPRAZolam [Xanax 0.5mg tab] 0.5 mg PO TID 12/23/18 02/10/20 History Amlodipine Besylate [Norvasc 2.5mg 2.5 mg PO DAILY 12/23/18 02/10/20 History Tab] Atorvastatin Calcium [Atorvastatin 20 mg PO HS 12/24/18 02/10/20 History 20mg Tab] carvediloL [Carvedilol 25mg Tab] 25 mg PO BID 12/24/18 02/10/20 History Cetirizine HCl [Zyrtec] 10 mg PO DAILYP PRN 04/06/19 02/10/20 History Fluticasone Propionate [Flonase 1 spr NS DAILY 04/06/19 02/10/20 History 50mcg nasal spray 16gm] Multivitamin [Multivitamins] 1 each P
[2020-02-10 16:00] VITALS: BP 117/70; PULSE 96; RESP 18; TEMP 37.1; O2SAT 94
[2020-02-10 16:39] LABS: Basophils % 0.5 % (0.1-2.0); Eosinophils # 0.2 K/mm3 (0.0-0.4); Eosinophils % 1.9 % (0.1-12.0); Hemoglobin 14.9 g/dL (12.2-16.2); Lymphocytes # 0.9 K/mm3 (0.7-4.5); Lymphocytes % 9.5 % (10-50); Mean Corpuscular HGB Conc 33.8 g/dL (31.8-35.4); Mean Corpuscular Hemoglobin 31.8 pg (27.0-31.2); Mean Platelet Volume 8.6 fl (7.4-10.4); Monocytes # 0.3 K/mm3 (0.1-1.0); Monocytes % 3.2 % (1.7-9.3); Neutrophils # 7.9 K/mm3 (1.8-7.8); Platelet Count 240 K/mm3 (142-424); Red Blood Count 4.69 M/mm3 (4.20-5.40); Red Cell Distribution Width 13.2 % (11.5-17.5); White Blood Count 9.3 K/mm3 (4.8-10.8)
[2020-02-10 16:41] LABS: Chloride 98 mmol/L (98-107); Sodium 136 mmol/L (136-145)
[2020-02-10 16:43] LABS: MANUAL DIFFERENTIAL MANUAL DIFFERENTIAL (MANUAL DIFF)
[2020-02-10 16:44] LABS: Alanine Aminotransferase 158 U/L (12-78); Alkaline Phosphatase 165 U/L (38-126); Aspartate Amino Transferase 296 U/L (14-36); Bilirubin,Total 1.3 mg/dl (0.2-1.3); Blood Urea Nitrogen 16 mg/dl (7-17); Carbon Dioxide 26 mmol/L (22.0-30.0); Creatinine Clearance Estimated 59 mL/min (50-200); Estimated Glomerular Filt Rate 55 ml/min (>60); GFR (African American) 67 ML/MIN (>60)
[2020-02-10 16:45] LABS: Albumin Level 4.3 g/dl (3.5-5.0); Albumin/Globulin Ratio 1.2 (1.1-1.8); Calcium 8.9 mg/dl (8.4-10.2); Globulin 3.7 g/dL (1.3-3.2); Glucose 107 mg/dl (74-100)
[2020-02-10 16:50] VITALS: PULSE 66; O2SAT 96
--- NOTE | 2020-02-10 16:50 | ECG_ITS ---
APPROVED REPORT Exam: Resting ECG HR:84 bpm ECG Measurements Heart Rate 84 AXES UT 126 P 30 QRSd 76 QRS 56 QT 372 T 60 QTc 439 <Conclusion> Normal sinus rhythm Normal ECG Electronically signed by : Ron Shen, 02/13/2020 07:05:35
[2020-02-10 16:54] LABS: Lymphocytes % 12 % (10-50); Monocytes % 5 % (2-9); Neutrophils % 82 % (42-76); Platelet Estimate Normal; Stomatocytes 1+; Total Cells Counted 100
[2020-02-10 17:34] LABS: Activated Partial Thrombo Time 25.2 seconds (23.6-34.0); Ethyl Alcohol < 10 mg/dl (0-10); INR 1.06 (0.9-1.1)
--- NOTE | 2020-02-10 19:12 | PC.NURSE ---
pt rue is notably deformed r/t fracture last year. pt has notable tremor noted. dr morrissey feels it may be related to possible alcohol consumption.
[2020-02-10 20:00] VITALS: BP 140/65; PULSE 88; RESP 18; TEMP 36.8; O2SAT 97
--- NOTE | 2020-02-10 20:03 | PC.NURSE ---
pt has notably deformed rue r/t fracture and repair last year. pt is also notably trembling. md aware states could possibly be related to alcohol consumption.
[2020-02-11] VITALS: BP 123/54; PULSE 86; RESP 18; TEMP 36.7; O2SAT 99
--- NOTE | 2020-02-11 02:45 | PC.NURSE ---
PT REMAINED A&OX3 T/O SHIFT. PERRLA NOTED WITH [employer]PER[employer]. SCLERA JAUNDICED ON ASSESSMENT. PT NOTED AGITATED WITH MODERATE-SEVERE TREMORS, WAS MADE AWARE AND ORDER GIVEN FOR PRN IV ATIVAN, ADMINISTERED PER DEC. ON REASSESSMENT PT STATED I FEEL BETTER NOW THAT YOU GAVE ME THAT MEDICINE. PROVIDED PT WITH FAN FOR C/O FEELING HOT WELL. PT RESTED WELL IN BED ONCE THE ABOVE INTERVENTIONS IMPLEMENTED. LUNGS NOTED CLEAR T/O AUSCULTATION. TOLERATED RA WELL. ABDOMEN NOTED FLAT, ACTIVE BOWEL SOUNDS, SOFT AND NONTENDER PER PALPATION. SMALL EPISODE OF DIARRHEA, LIGHT BROWN/ORANGE IN COLOR. REQUIRES SBA WITH AMBULATION TO AND FROM BATHROOM. PT DID REFUSE IVF'S WHILE AGITATED, RESTARTED ONCE PT WAS LESS AGITATED AND WHILE NOTED WITH EYES CLOSED. VSS. WILL CONTINUE TO MONITOR.
[2020-02-11 04:00] VITALS: BP 165/92; PULSE 93; RESP 18; TEMP 36.9; O2SAT 98
[2020-02-11 05:11] VITALS: BMI 31.6
[2020-02-11 07:26] LABS: Eosinophils # 0.2 K/mm3 (0.0-0.4); Lymphocytes # 1.1 K/mm3 (0.7-4.5); Monocytes # 0.3 K/mm3 (0.1-1.0); Neutrophils # 2.9 K/mm3 (1.8-7.8); Red Cell Distribution Width 13.3 % (11.5-17.5); White Blood Count 4.5 K/mm3 (4.8-10.8)
[2020-02-11 07:28] LABS: Chloride 102 mmol/L (98-107); Potassium 3.7 mmoL/L (3.5-5.1); Sodium 135 mmol/L (136-145)
[2020-02-11 07:30] LABS: Alanine Aminotransferase 105 U/L (12-78); Aspartate Amino Transferase 150 U/L (14-36); Blood Urea Nitrogen 12 mg/dl (7-17); Creatinine Clearance Estimated 60 mL/min (50-200); Estimated Glomerular Filt Rate 72 ml/min (>60); GFR (African American) 87 ML/MIN (>60)
[2020-02-11 07:31] LABS: Albumin Level 3.7 g/dl (3.5-5.0); Albumin/Globulin Ratio 1.2 (1.1-1.8); Alkaline Phosphatase 129 U/L (38-126); Anion Gap 10.7 mEq/L (5-15); Bilirubin,Total 1.6 mg/dl (0.2-1.3); Calcium 8.6 mg/dl (8.4-10.2); Carbon Dioxide 26 mmol/L (22.0-30.0); Globulin 3.2 g/dL (1.3-3.2); Glucose 86 mg/dl (74-100); Magnesium 1.5 mg/dl (1.6-2.3); Total Protein,Serum 6.9 g/dl (6.3-8.2)
[2020-02-11 07:34] LABS: Basophils % 0.6 % (0.1-2.0); Eosinophils % 4.3 % (0.1-12.0); Hematocrit 41.8 % (37.0-47.0); Lymphocytes % 23.7 % (10-50); Mean Corpuscular HGB Conc 32.2 g/dL (31.8-35.4); Mean Corpuscular Hemoglobin 30.6 pg (27.0-31.2); Mean Platelet Volume 8.5 fl (7.4-10.4); Monocytes % 6.6 % (1.7-9.3); Neutrophils % 64.8 % (37.0-80.0); Platelet Count 173 K/mm3 (142-424)
[2020-02-11 07:41] LABS: Hemoglobin 13.5 g/dL (12.2-16.2)
[2020-02-11 07:47] VITALS: BP 139/76; PULSE 91; RESP 18; TEMP 36.7; O2SAT 97
--- NOTE | 2020-02-11 08:32 | HMH.DCSUM ---
General - General Admission date:: 02/10/20 Discharge date: 02/11/20 HPI HPI: Rounded on patient in the evening. She denies to me any alcohol use. Labs back at this time, has an AST to ALT ratio of greater than 2. Is pleasant but appears anxious and jittery. Blood pressure has improved. Alert and oriented to person place and time. Denies any chest pain, shortness of breath, nausea but does complain of some upset stomach and loose stools. Also complaining of some right upper quadrant discomfort when it is pressed on. From nurse practitioner note: 64 year old female with h/o ETOH abuse, HTN, and anemia presented to PCP office for routine med check. She was noted to have significant SOA with minimal exertion. Reports SOA and weakness x 1 week. Denies any cough or chest congestion. No fevers. Denies any recent ETOH use. She was found to be hypotensive with manual b/p 70/p bilaterally. Patient was direct admitted for IV hydration, labs and further evaluation. Hospital Course Hospital Course: Admitted for hypotension and weakness. Patient's blood pressure improved significantly with fluid resuscitation and holding blood pressure medications. She did have significant anxiety with worsening tremor/jitteriness and difficulty sleeping. Though she denies alcohol use, her liver enzyme ratio and known history, as she is well-known to us in clinic, would say otherwise. Still have high suspicion that she has been drinking even without her admission at this time. Labs this morning, liver enzymes significantly improved, decreased by 50%. Patient is medically stable with improvement in blood pressure. Meeting criteria for discharge home. Adjustments to meds as follows: Continue Xanax at current dosage, stressed the importance of not drinking due to its impact on her liver as well as contraindicated in the current use of benzodiazepines. Hold Norvasc, due to hypotension Hold atorvastatin, due to elevation in LFTs Resume carvedilol at half dose (12.5 mg twice daily) Patient to follow-up with us in a week for reassessment. Would recommend repeating labs at that time including CMP. Denies chest pain, shortness of breath, nausea, vomiting. Still having some loose stools. Clinically improved. Abdominal pain resolved Objective Vital signs: Temp Pulse Resp BP Pulse Ox 98.0 F 91 H 18 139/76 97 02/11/20 07:47 02/11/20 07:47 02/11/20 07:47 02/11/20 07:47 02/11/20 07:47 Narrative: Alert and oriented x3. No acute distress on exam. Cushingoid face. Heart rate regular, no murmurs. No edema in lower extremities. Lungs clear to auscultation with no wheeze or rhonchi. Abdomen soft, protuberant. Resolved tenderness in right upper quadrant. Active bowel sounds. Moist mucous membranes, normal dentition. Normal mood and affect, jittery on exam Results Labs on day of discharge: Labs from last 24 hours 02/11/20 02/11/20 02/10/20 06:30 06:30 16:27 WBC 4.5 L D RBC 4.40 Hgb 13.5 Hct 41.8 MCV 95.0 MCH 30.6 MCHC 32.2 RDW 13.3 Plt Count 173 D MPV 8.5 Neut % (Auto) 64.8 Lymph % (Auto) 23.7 [place] % (Auto) 6.6 Eos % (Auto) 4.3 Baso % (Auto) 0.6 Neut # (Auto) 2.9 Lymph # (Auto) 1.1 [place] # (Auto) 0.3 Eos # (Auto) 0.2 Baso # (Auto) 0.0 Total Counted Neutrophils % (Manual) Lymphocytes % (Manual) Monocytes % (Manual) Metamyelocytes % Platelet Estimate Stomatocytes PT 11.0 INR 1.06 APTT 25.2 Sodium 135 L Potassium 3.7 Chloride 102 Carbon Dioxide 26 Anion Gap 10.7 BUN 12 Creatinine 0.80 Estimated Creat Clear 60 Estimated GFR 72 Est GFR ( Amer) 87 D Glucose 86 Calcium 8.6 Magnesium 1.5 L Total Bilirubin 1.6 H AST 150 H D ALT 105 H D Alkaline Phosphatase 129 H Total Protein 6.9 Albumin 3.7 D Globulin 3.2 Albumin/Globulin Ratio 1.2 P
[2020-02-11 09:02] VITALS: PULSE 91; RESP 18; O2SAT 97
--- NOTE | 2020-02-11 11:04 | HMH.PHAINT ---
DISCHARGE COUNSELING COMPLETED ON PATIENT. ONLY NEW PRESCRIPTION IS OMEPRAZOLE. THIS WAS SENT TO [facility]. PATIENT IS TO TAKE HALF OF COREG AND HOLD NORVASC/LIPITOR UNTIL FOLLOW UP WITH JESSICA. CONTINUE ALL OTHER HOME MEDICATIONS. PATIENT VERBALIZED UNDERSTANDING AND HAD NO QUESTIONS AT THIS TIME. -MARIBEL RUIZ, PHARMD
== END 2020-02-11 11:50 | disposition home or self-care (01) ==
PROVIDERS: Internal Medicine Adolescent Medicine; Nurse Practitioner Family; Admitting Provider Internal Medicine Adolescent Medicine; PCP Internal Medicine Adolescent Medicine; Visit Provider Internal Medicine Adolescent Medicine
DX: I95.9 Hypotension, unspecified (principal); E66.9 Obesity, unspecified; Z68.31 Body mass index [BMI] 31.0-31.9, adult; Z79.899 Other long term (current) drug therapy; I10 Essential (primary) hypertension; F10.21 Alcohol dependence, in remission; K75.9 Inflammatory liver disease, unspecified
CPT/HCPCS: G0379; 36415; 71046; 80053; 83735; 85007; 85025; 85610; 85730; 93005; G0378